=== PATIENT | female | born 1965 | race American Indian/Alaskan Native ===

== ENCOUNTER 2019-02-03 10:55 | Emergency (ER) | payer OTHER ==
[2019-02-03] MEDS ORDERED: TRIMOX PO ONE (12:17)
--- NOTE | 2019-02-03 12:42 | Emergency Department Report ---
ED ENT HPI - General Chief complaint: Sore Throat Stated complaint: SORE THROAT Time Seen by Provider: 02/03/19 11:40 Source: patient Mode of arrival: Ambulatory Limitations: No Limitations - History of Present Illness Initial comments: patient is a 53-year-old female who presents to ED with complaining of throat pain 7 days. Patient describes pain as throbbing in nature, 8 out of 10 intensity, nonradiating, localized to his throat. Admits pain with swallowing and eating. Patient admits no appetite due to throat pain. Patient denies fever/chills/nausea/vomiting/abdominal pain/shortness of breath/chest pain/headache. - Related Data Previous Rx's Medication Instructions Recorded Last Taken Type Amoxicillin [Amoxicillin TAB] 875 mg PO BID #10 tablet 02/03/19 Unknown Rx Nystas/Diphen/Xyl Visc/Mylanta 15 ml PO Q6H PRN #120 ml 02/03/19 Unknown Rx [Magic Mouthwash] Allergies Allergy/AdvReac Type Severity Reaction Status Date / Time neomycin Allergy Swelling Verified 02/03/19 10:56 ED Dental HPI - General Chief complaint: Sore Throat Stated complaint: SORE THROAT Time Seen by Provider: 02/03/19 11:40 Source: patient Mode of arrival: Ambulatory Limitations: No Limitations - Related Data Previous Rx's Medication Instructions Recorded Last Taken Type Amoxicillin [Amoxicillin TAB] 875 mg PO BID #10 tablet 02/03/19 Unknown Rx Nystas/Diphen/Xyl Visc/Mylanta 15 ml PO Q6H PRN #120 ml 02/03/19 Unknown Rx [Magic Mouthwash] Allergies Allergy/AdvReac Type Severity Reaction Status Date / Time neomycin Allergy Swelling Verified 02/03/19 10:56 ED Review of Systems ROS: Stated complaint: SORE THROAT Other details as noted in HPI Comment: All other systems reviewed and negative ED Past Medical Hx - Past Medical History Hx Hypertension: Yes Hx Diabetes: Yes Additional medical history: THRYOID PROBLEMS - Social History Smoking Status: Never Smoker Substance Use Type: None - Medications Home Medications: Home Medications Medication Instructions Recorded Confirmed Last Taken Type Amoxicillin [Amoxicillin TAB] 875 mg PO BID #10 tablet 02/03/19 Unknown Rx Nystas/Diphen/Xyl Visc/Mylanta 15 ml PO Q6H PRN #120 ml 02/03/19 Unknown Rx [Magic Mouthwash] ED Physical Exam - General Limitations: No Limitations General appearance: alert, in no apparent distress - Head Head exam: Present: atraumatic, normocephalic - Eye Eye exam: Present: normal appearance - ENT ENT exam: Present: mucous membranes moist, TM's normal bilaterally - Expanded ENT Exam Expanded Throat exam: Positive: normal inspection, tonsillar erythema. Negative: tonsillar exudate, R peritonsillar mass, L peritonsillar mass - Neck Neck exam: Present: normal inspection, lymphadenopathy ( right anterior lymphadenopathy) - Respiratory Respiratory exam: Present: normal lung sounds bilaterally. Absent: respiratory distress - Cardiovascular Cardiovascular Exam: Present: regular rate, normal rhythm. Absent: systolic murmur, diastolic murmur, rubs, gallop - GI/Abdominal GI/Abdominal exam: Present: soft, normal bowel sounds - Extremities Exam Extremities exam: Present: normal inspection - Back Exam Back exam: Present: normal inspection - Neurological Exam Neurological exam: Present: alert, oriented X3 - Psychiatric Psychiatric exam: Present: normal affect, normal mood - Skin Skin exam: Present: warm, dry, intact, normal color. Absent: rash ED Course Vital Signs 02/03/19 11:10 Temperature 98.9 F Pulse Rate 91 H Respiratory 16 Rate Blood Pressure 142/90 O2 Sat by Pulse 98 Oximetry Critical care attestation.: If time is entered above; I have spent that time in minutes in the direct care of this critically ill patient, excluding procedure time. ED Disposition Clinical Impression: Pharyngitis Disposition: DC-01 TO HOME OR SELFCARE Is pt being admited?: No Does the pt Need Aspirin: No Condition: Stable Instructions: Pharyngitis (ED) Additional Instructions: Make sure to follow up with the primary care physician as discussed. Take all your medications as you've been prescribed. If you have any worsening symptoms or develop new symptoms please return to ED immediately. Prescriptions: Amoxicillin [Amoxicillin TAB] 875 mg PO BID #10 tablet Nystas/Diphen/Xyl Visc/Mylanta [Magic Mouthwash] 15 ml PO Q6H PRN #120 ml PRN Reason: Sore Throat Referrals: [facility] [Outside] - 3-5 Days [facility] [Outside] - 3-5 Days Forms: Work/School Release Form(ED), Accompanied Note Time of Disposition: 12:51
[2019-02-03 13:08] VITALS: BP 140/90
== END 2019-02-03 13:07 | disposition home or self-care (01) ==
LOC: ED 10:55
DX: J02.9 Acute pharyngitis, unspecified (principal); I10 Essential (primary) hypertension; E11.9 Type 2 diabetes mellitus without complications; Z88.1 Allergy status to other antibiotic agents
CPT/HCPCS: 99282

== ENCOUNTER 2019-10-31 09:19 | Emergency (ER) | payer OTHER ==
--- NOTE | 2019-10-31 10:26 | Emergency Department Report ---
ED ENT HPI - General Chief complaint: Earache Stated complaint: EAR PAIN EXTREME Time Seen by Provider: 10/31/19 10:09 Source: patient Mode of arrival: Ambulatory Limitations: No Limitations - History of Present Illness Initial comments: Patient is a 54-year-old female presents emergency room with complaints of bilateral ear pain that began 4 days ago. She states that she had 3 teeth pulled on October 10. She denies any ear drainage, fever. She states it feels like the ear canals are swollen and she has pain even when she tries to remove her earrings. She has a past medical history of DM, HTN, thyroid resection. She has an allergy to neomycin. - Related Data Previous Rx's Medication Instructions Recorded Last Taken Type Amoxicillin [Amoxicillin TAB] 875 mg PO BID #10 tablet 02/03/19 Unknown Rx Nystas/Diphen/Xyl Visc/Mylanta 15 ml PO Q6H PRN #120 ml 02/03/19 Unknown Rx [Magic Mouthwash] Ofloxacin 0.3% [Floxin 0.3% Otic] 10 drop OT DAILY 10 Days #1 bottle 10/31/19 Unknown Rx Allergies Allergy/AdvReac Type Severity Reaction Status Date / Time neomycin Allergy Swelling Verified 10/31/19 09:21 ED Dental HPI - General Chief complaint: Earache Stated complaint: EAR PAIN EXTREME Time Seen by Provider: 10/31/19 10:09 Source: patient Mode of arrival: Ambulatory Limitations: No Limitations - Related Data Previous Rx's Medication Instructions Recorded Last Taken Type Amoxicillin [Amoxicillin TAB] 875 mg PO BID #10 tablet 02/03/19 Unknown Rx Nystas/Diphen/Xyl Visc/Mylanta 15 ml PO Q6H PRN #120 ml 02/03/19 Unknown Rx [Magic Mouthwash] Ofloxacin 0.3% [Floxin 0.3% Otic] 10 drop OT DAILY 10 Days #1 bottle 10/31/19 Unknown Rx Allergies Allergy/AdvReac Type Severity Reaction Status Date / Time neomycin Allergy Swelling Verified 10/31/19 09:21 ED Review of Systems ROS: Stated complaint: EAR PAIN EXTREME Other details as noted in HPI Comment: All other systems reviewed and negative ED Past Medical Hx - Past Medical History Hx Hypertension: Yes Hx Diabetes: Yes Additional medical history: THRYOID PROBLEMS - Surgical History Additional Surgical History: DENTAL SURGERY - Social History Smoking Status: Current Every Day Smoker Substance Use Type: Alcohol - Medications Home Medications: Home Medications Medication Instructions Recorded Confirmed Last Taken Type Amoxicillin [Amoxicillin TAB] 875 mg PO BID #10 tablet 02/03/19 Unknown Rx Nystas/Diphen/Xyl Visc/Mylanta 15 ml PO Q6H PRN #120 ml 02/03/19 Unknown Rx [Magic Mouthwash] Ofloxacin 0.3% [Floxin 0.3% Otic] 10 drop OT DAILY 10 Days #1 bottle 10/31/19 Unknown Rx ED Physical Exam - General Limitations: No Limitations General appearance: alert, in no apparent distress - Head Head exam: Present: atraumatic, normocephalic - Eye Eye exam: Present: normal appearance - ENT ENT exam: Present: normal orophraynx, mucous membranes moist, other (erythema and scaling present to the bilateral canals, bilateral TMs are normal, no TM perforation, no ttp to the bilateral mastoid process) - Respiratory Respiratory exam: Present: normal lung sounds bilaterally. Absent: respiratory distress, wheezes, rales, rhonchi, stridor, chest wall tenderness, accessory muscle use, decreased breath sounds, prolonged expiratory - Cardiovascular Cardiovascular Exam: Present: regular rate, normal rhythm, normal heart sounds. Absent: systolic murmur, diastolic murmur, rubs, gallop - Neurological Exam Neurological exam: Present: alert, oriented X3 - Psychiatric Psychiatric exam: Present: normal affect, normal mood - Skin Skin exam: Present: warm, dry, intact ED Course Vital Signs 10/31/19 10/31/19 09:23 10:50 Temperature 97.8 F Pulse Rate 80 76 Respiratory 18 18 Rate Blood Pressure 176/99 Blood Pressure 168/92 [Left] O2 Sat by Pulse 97 98 Oximetry ED Medical Decision Making - Medical Decision Making Patient is a 54-year-old female presents emergency room with complaints of bilateral ear pain that began 4 days ago. She states that she had 3 teeth pulled on October 10. She denies any ear drainage, fever. She states it feels like the ear canals are swollen and she has pain even when she tries to remove her earrings. She has a past medical history of DM, HTN, thyroid resection. She has an allergy to neomycin. vitals with stable chronic HTN. on exam: erythema and scaling present to the bilateral canals, bilateral TMs are normal, no TM perforation, no ttp to the bilateral mastoid process. Examination consistent with otitis externa at this time. no signs of dental abscess. Patient given prescription for ofloxacin otic drops. advised pt to please use medication as prescribed. May take Tylenol or ibuprofen as needed for pain. Follow-up with your primary care doctor in the next 3 to 5 days to have your ears rechecked. Please keep a blood pressure log and take your blood pressure 3 times a day. Take this log to your primary care physician. Eat a low-sodium diet. Incorporate daily exercise. Return to the emergency room for any new or worsening symptoms. - Differential Diagnosis otitis externa, otitis media, mastoiditis, sialoadenitis, dental abscess Critical care attestation.: If time is entered above; I have spent that time in minutes in the direct care of this critically ill patient, excluding procedure time. ED Disposition Clinical Impression: Otitis externa Qualifiers: Otitis externa type: unspecified type Chronicity: acute Laterality: bilateral Qualified Code(s): H60.503 - Unspecified acute noninfective otitis externa, bilateral Disposition: TO HOME OR SELFCARE Is pt being admited?: No Does the pt Need Aspirin: No Condition: Stable Instructions: Otitis Externa (ED) Additional Instructions: Please use medication as prescribed. May take Tylenol or ibuprofen as needed for pain. Follow-up with your primary care doctor in the next 3 to 5 days to have your ears rechecked. Please keep a blood pressure log and take your blood pressure 3 times a day. Take this log to your primary care physician. Eat a low-sodium diet. Incorporate daily exercise. Return to the emergency room for any new or worsening symptoms. Prescriptions: Ofloxacin 0.3% [Floxin 0.3% Otic] 10 drop OT DAILY 10 Days #1 bottle Referrals: BRYSON QUINTANILLA MD [Staff Physician] - 2-3 Days [facility] [Outside] - 2-3 Days [facility] [Outside] - 2-3 Days Time of Disposition: 10:25 Print Language: BRUNEIAN
[2019-10-31 10:52] VITALS: BP 168/92
== END 2019-10-31 10:50 | disposition home or self-care (01) ==
LOC: ED 09:19
DX: H60.93 Unspecified otitis externa, bilateral (principal); I10 Essential (primary) hypertension; E11.9 Type 2 diabetes mellitus without complications; F17.200 Nicotine dependence, unspecified, uncomplicated; Z98.890 Other specified postprocedural states; Z79.2 Long term (current) use of antibiotics; Z79.899 Other long term (current) drug therapy; Z88.8 Allergy status to other drugs, medicaments and biological substances
CPT/HCPCS: 99282

== ENCOUNTER 2020-06-20 08:14 | Inpatient (IN) | payer OTHER ==
[2020-06-20] MEDS ORDERED: ONDANSETRON 4 MG/2 ML INJ IV ONE ×2 (08:43→09:57)
[2020-06-20] MEDS ORDERED: MORPHINE 4 MG/1 ML INJ IV ONE ×2 (08:43→09:57)
--- NOTE | 2020-06-20 08:46 | Emergency Department Report ---
HPI - General Chief Complaint: Abdominal Pain Time Seen by Provider: 06/20/20 08:31 - HPI HPI: This is a 54-year-old -[place] female who presents to the emergency department from home, driven in by her brother, with a complaint of abdominal pain and vomiting that has been going on since this morning, around 3-4 AM. She denies any fever, diarrhea, back pain, dysuria, vaginal bleeding or discharge. She has not taken anything for symptoms prior to presentation. The patient says "I think I got food poisoning." She ate some [place] food that she has had previously. She has a past medical history of hypertension and diabetes. She does present with some elevated blood pressure but has not been able to take her medications yet this morning due to her current symptoms. No recent travel or sick contacts at home. No known exposure to anyone with Covid 19. Her abdominal pain appears to improve when laying on her left side. The abdominal pain is mostly in the upper abdomen. ED Past Medical Hx - Past Medical History Previous Medical History?: Yes Hx Hypertension: Yes Hx Diabetes: Yes Additional medical history: THRYOID PROBLEMS - Surgical History Past Surgical History?: Yes Additional Surgical History: DENTAL SURGERY - Social History Smoking Status: Current Every Day Smoker Substance Use Type: Alcohol - Medications Home Medications: Home Medications Medication Instructions Recorded Confirmed Last Taken Type Levothyroxine 200 mg PO DAILY 06/20/20 06/20/20 Unknown History Lisinopril [Zestril] 5 mg PO Q48HR 06/20/20 06/20/20 Unknown History ED Review of Systems ROS: Stated complaint: FOOD POISION Other details as noted in HPI Comment: All other systems reviewed and negative Constitutional: denies: chills, fever Eyes: denies: eye pain, vision change ENT: denies: ear pain, throat pain Respiratory: denies: cough, shortness of breath Cardiovascular: denies: chest pain, palpitations Gastrointestinal: abdominal pain, vomiting. denies: diarrhea Genitourinary: denies: dysuria, discharge Musculoskeletal: denies: back pain, arthralgia Skin: denies: rash, lesions Neurological: denies: headache, weakness Physical Exam - Physical Exam Vital Signs: Vital Signs 06/20/20 06/20/20 06/20/20 08:18 08:35 08:39 Temperature 98.5 F Pulse Rate 80 83 Respiratory 18 18 18 Rate Blood Pressure 191/105 O2 Sat by Pulse 98 99 Oximetry Physical Exam: GENERAL: The patient is well-developed well-nourished. HENT: Normocephalic. Atraumatic. Patient has moist mucous membranes. EYES: Extraocular motions are intact. NECK: Supple. Trachea is midline. CHEST/LUNGS: Clear to auscultation. There is no respiratory distress noted. HEART/CARDIOVASCULAR: Regular. There is no tachycardia. There is no murmur. ABDOMEN: Abdomen is soft. Epigastric and left/right upper quadrant abdominal tenderness to palpation patient has normal bowel sounds. No guarding. SKIN: Skin is warm and dry. NEURO: The patient is awake, alert, and oriented. The patient is cooperative. Normal speech. MUSCULOSKELETAL: There is no tenderness or deformity. There is no limitation range of motion. ED Course Vital Signs 06/20/20 06/20/20 06/20/20 08:18 08:35 08:39 Temperature 98.5 F Pulse Rate 80 83 Respiratory 18 18 18 Rate Blood Pressure 191/105 O2 Sat by Pulse 98 99 Oximetry - Consultations Consultation #1: 06/20/20 12:07 I spoke with the general surgeon on-call, Dr. Chambers, regarding the patient's physical examination and ultrasound finding of a distended gallbladder without evidence of cholelithiasis or cholecystitis. He has asked for the patient to be admitted to the hospitalist service, for a HIDA scan to be ordered, and he will follow-up with the patient as a consult. ED Medical Decision Making - Lab Data Result diagrams: 06/20/20 08:31 06/20/20 09:11 - Radiology Data Radiology results: report reviewed, image reviewed interpreted by me: Abdominal x-ray shows nonspecific nonobstructive bowel gas. ULTRASOUND ABDOMEN, LIMITED (RIGHT UPPER QUADRANT) INDICATION / CLINICAL INFORMATION: Upper abd pain. COMPARISON: None available. FINDINGS: PANCREAS: Not well visualized secondary to overlying bowel gas. LIVER: The liver measures 14.4 cm in length and demonstrates diffusely increased parenchymal echogenicity. GALLBLADDER: The gallbladder is significantly distended without evidence of stones or wall thickening. There is a positive sonographic Prado's sign. BILE DUCTS: No significant abnormality. Common bile duct measures 4 mm. FREE FLUID: None. ADDITIONAL FINDINGS: None. IMPRESSION: 1. Significant gallbladder distention without cholelithiasis or cholecystitis. There was a positive son ographic Prado's sign. Further evaluation with nuclear medicine hepatobiliary (HIDA) scan may be helpful. 2. Hepatic steatosis. - Medical Decision Making This patient presents to the emergency department with a complaint of upper abdominal pain, nausea and vomiting that started this morning around 3 AM. On examination the patient is quite tender to palpation to the right upper quadrant and epigastrium with a positive Prado sign. Patient's labs have been mostly unremarkable including CBC, CMP and urinalysis, other than some hyperglycemia and mild dehydration with 20 ketones in the urine. The blood sugar is initially about 320 but there is no significant elevated anion gap and this does not appear consistent with diabetic ketoacidosis. Abdominal x-ray shows nonspecific nonobstructive bowel gas. Abdominal ultrasound shows a distended gallbladder without definitive evidence for cholelithiasis or cholecystitis. The radiology reading recommends a HIDA scan for concern for possible choledocholithiasis. General surgery was contacted and consulted. HIDA scan has been ordered. The patient will be admitted to the hospitalist service with a general surgery consult. Critical Care Time: No Critical care attestation.: If time is entered above; I have spent that time in minutes in the direct care of this critically ill patient, excluding procedure time. ED Disposition Clinical Impression: Intractable abdominal pain, Abnormal ultrasound of abdomen Nausea & vomiting Qualifiers: Vomiting type: unspecified Vomiting Intractability: intractable Qualified Code(s): R11.2 - Nausea with vomiting, unspecified Hypertension Qualifiers: Hypertension type: essential hypertension Qualified Code(s): I10 - Essential (primary) hypertension Disposition: OP ADMIT IP TO THIS HOSP Is pt being admited?: Yes Condition: Fair Time of Disposition: 12:26
[2020-06-20 08:55] LABS: Basophils # (Auto) 0.1 K/mm3 (0.0-0.1); Basophils % (Auto) 1.4 % (0.0-1.8); Eosinophils # (Auto) 0.1 K/mm3 (0.0-0.4); Hematocrit 44.5 % (30.3-42.9); Hemoglobin 15.2 gm/dl (10.1-14.3); Lymphocytes # (Auto) 1.7 K/mm3 (1.2-5.4); Lymphocytes % (Auto) 18.4 % (13.4-35.0); Mean Corpuscular HGB Conc 34 % (30-34); Mean Corpuscular Volume 90 fl (79-97); Monocytes # (Auto) 0.3 K/mm3 (0.0-0.8); Monocytes % (Auto) 3.8 % (0.0-7.3); Platelet Count 272 K/mm3 (140-440); Red Blood Count 4.93 M/mm3 (3.65-5.03); Red Cell Distribution Width 16.1 % (13.2-15.2)
[2020-06-20 09:01] LABS: Bacteria,Urine 1+ /HPF (Negative); Bilirubin,Urine NEG (Negative); Blood,Urine NEG (Negative); Color,Urine Straw (Yellow); Urobilinogen,Urine < 2.0 mg/dL (<2.0)
--- NOTE | 2020-06-20 09:16 | XRay Report ---
ABDOMEN 4 VIEWS INDICATION / CLINICAL INFORMATION: Abd pain. COMPARISON: None available. FINDINGS: TUBES / LINES: None. BOWEL GAS PATTERN: No significant abnormality. FREE AIR / EXTRALUMINAL GAS: None seen. ADDITIONAL FINDINGS: Small right-sided calcified pelvic mass likely reflects a fibroid. CHEST: Visualized chest shows no significant abnormality. IMPRESSION: 1. No significant abnormality. Signer Name: Sergio Montez MD Signed: 06/20/2020 9:11 AM Workstation Name: [id number]
[2020-06-20 09:50] LABS: Alanine Aminotransferase 34 units/L (7-56); Albumin 4.6 g/dL (3.9-5); BUN/Creatinine Ratio 14; Blood Urea Nitrogen 11 mg/dL (7-17); Calcium 9.5 mg/dL (8.4-10.2); Hemolysis Index 15
[2020-06-20] MEDS ORDERED: SODIUM CHLORIDE 0.9% 500 ML 500 ML IV ONE (09:55)
[2020-06-20] MEDS ORDERED: INSULIN REGULAR, HUMAN 100 UNIT/ML 3ML VIAL IV SCH (10:00)
--- NOTE | 2020-06-20 11:46 | Ultrasound Report ---
ULTRASOUND ABDOMEN, LIMITED (RIGHT UPPER QUADRANT) INDICATION / CLINICAL INFORMATION: Upper abd pain. COMPARISON: None available. FINDINGS: PANCREAS: Not well visualized secondary to overlying bowel gas. LIVER: The liver measures 14.4 cm in length and demonstrates diffusely increased parenchymal echogen[place] city. GALLBLADDER: The gallbladder is significantly distended without evidence of stones or wall thickening . There is a positive sonographic Prado's sign. BILE DUCTS: No significant abnormality. Common bile duct measures 4 mm. FREE FLUID: None. ADDITIONAL FINDINGS: None. IMPRESSION: 1. Significant gallbladder distention without cholelithiasis or cholecystitis. There was a positive s onographic Prado's sign. Further evaluation with nuclear medicine hepatobiliary (HIDA) scan may be h elpful. 2. Hepatic steatosis. Signer Name: Sergio Montez MD Signed: 06/20/2020 11:41 AM Workstation Name: [id number]
--- NOTE | 2020-06-20 13:25 | Progress Note ---
Assessment and Plan consult rec'd Await HIDA scan results but dx suspicious for acute cholecystitis based on +Prado's sign/symptom complex. will see pt tomorrow Subjective Date of service: 06/20/20 Objective Vital Signs - 12hr 06/20/20 06/20/20 06/20/20 08:18 08:35 08:39 Temperature 98.5 F Pulse Rate 80 83 Respiratory 18 18 18 Rate Blood Pressure 191/105 O2 Sat by Pulse 98 99 Oximetry 06/20/20 06/20/20 06/20/20 08:45 09:01 09:05 Temperature Pulse Rate 88 80 Respiratory 18 18 13 Rate Blood Pressure 184/97 165/78 O2 Sat by Pulse 100 94 Oximetry 06/20/20 06/20/20 06/20/20 09:09 09:15 09:31 Temperature Pulse Rate 77 81 Respiratory 18 14 18 Rate Blood Pressure 165/78 165/78 O2 Sat by Pulse 97 90 Oximetry 06/20/20 06/20/20 06/20/20 09:45 10:00 10:21 Temperature Pulse Rate 80 81 76 Respiratory 17 14 13 Rate Blood Pressure 165/78 184/94 184/94 O2 Sat by Pulse 93 98 100 Oximetry 06/20/20 06/20/20 06/20/20 10:55 10:58 11:01 Temperature Pulse Rate Respiratory 18 Rate Blood Pressure 184/94 184/94 O2 Sat by Pulse 100 99 Oximetry 06/20/20 06/20/20 06/20/20 11:04 11:15 11:31 Temperature Pulse Rate Respiratory 18 Rate Blood Pressure 184/94 184/94 O2 Sat by Pulse 88 94 Oximetry 06/20/20 06/20/20 06/20/20 11:45 12:01 12:15 Temperature Pulse Rate Respiratory Rate Blood Pressure 184/94 165/88 165/88 O2 Sat by Pulse 93 93 93 Oximetry - Labs 06/20/20 08:31 06/20/20 09:11 Diabetes panel 06/20/20 Range/Units 09:11 Sodium 136 L (137-145) mmol/L Potassium 3.9 (3.6-5.0) mmol/L Chloride 96.2 L (98-107) mmol/L Carbon Dioxide 25 (22-30) mmol/L BUN 11 (7-17) mg/dL Creatinine 0.8 (0.6-1.2) mg/dL Glucose 365 H (65-100) mg/dL Calcium 9.5 (8.4-10.2) mg/dL AST 25 (5-40) units/L ALT 34 (7-56) units/L Alkaline Phosphatase 146 H (35-129) units/L Total Protein 7.8 (6.3-8.2) g/dL Albumin 4.6 (3.9-5) g/dL Calcium panel 06/20/20 Range/Units 09:11 Calcium 9.5 (8.4-10.2) mg/dL Albumin 4.6 (3.9-5) g/dL Pituitary panel 06/20/20 Range/Units 09:11 Sodium 136 L (137-145) mmol/L Potassium 3.9 (3.6-5.0) mmol/L Chloride 96.2 L (98-107) mmol/L Carbon Dioxide 25 (22-30) mmol/L BUN 11 (7-17) mg/dL Creatinine 0.8 (0.6-1.2) mg/dL Glucose 365 H (65-100) mg/dL Calcium 9.5 (8.4-10.2) mg/dL Adrenal panel 06/20/20 Range/Units 09:11 Sodium 136 L (137-145) mmol/L Potassium 3.9 (3.6-5.0) mmol/L Chloride 96.2 L (98-107) mmol/L Carbon Dioxide 25 (22-30) mmol/L BUN 11 (7-17) mg/dL Creatinine 0.8 (0.6-1.2) mg/dL Glucose 365 H (65-100) mg/dL Calcium 9.5 (8.4-10.2) mg/dL Total Bilirubin 0.50 (0.1-1.2) mg/dL AST 25 (5-40) units/L ALT 34 (7-56) units/L Alkaline Phosphatase 146 H (35-129) units/L Total Protein 7.8 (6.3-8.2) g/dL Albumin 4.6 (3.9-5) g/dL
--- NOTE | 2020-06-20 13:39 | History and Physical Report ---
History of Present Illness Date of examination: 06/20/20 Date of admission: 06/20/20 12:56 Chief complaint: Nausea vomiting and abdominal pain of 1 day duration History of present illness: 54-year-old morbidly obese -[place] female patient with significant past medical history of type 2 diabetes mellitus hypothyroidism and hypertension ongoing tobacco use presented to the emergency room with nausea vomiting abdominal pain last night, patient denies any diarrhea, no fever Patient feels that she has food poisoning as she had some still [place] food. Denies hematemesis, melena or rectal bleeding No history of sick contacts, no one in the family has similar symptoms, no exposure to COVID-19 patient's Initial work-up in the emergency room with abdominal ultrasound;Significant gallbladder distention without cholelithiasis or cholecystitis. There was a positive sonographic Prado's sign. Further evaluation with nuclear medicine hepatobiliary (HIDA) scan may be helpful. Past History Past Medical History: diabetes, hypertension, hypothyroidism Past Surgical History: Other (Dental surgery) Social history: smoking, alcohol abuse. denies: prescription drug abuse Family history: hypertension Medications and Allergies Allergies Allergy/AdvReac Type Severity Reaction Status Date / Time neomycin Allergy Swelling Verified 10/31/19 09:21 Home Medications Medication Instructions Recorded Confirmed Last Taken Type Levothyroxine 200 mg PO DAILY 06/20/20 06/20/20 Unknown History Lisinopril [Zestril] 5 mg PO Q48HR 06/20/20 06/20/20 Unknown History Active Meds: Active Medications Insulin Human Regular (Humulin R) 3 unit IV ONCE REVA Last Admin: 06/20/20 11:00 Dose: 3 unit Documented by: Review of Systems Constitutional: weakness, no weight loss, no fever, no chills Ears, nose, mouth and throat: no nasal congestion, no nasal discharge Cardiovascular: no chest pain, no orthopnea, no palpitations Respiratory: no cough, no hemoptysis Gastrointestinal: abdominal pain, nausea, vomiting, no diarrhea, no hematemesis, no melena Genitourinary Female: no pelvic pain, no flank pain Musculoskeletal: no myalgias, no arthritis Integumentary: no rash, no lesions Neurological: no weakness, no numbness, no tingling Psychiatric: no anxiety, no insomnia, no depression Endocrine: no cold intolerance, no heat intolerance Hematologic/Lymphatic: no easy bruising, no easy bleeding Allergic/Immunologic: no urticaria, no allergic rhinitis Exam - Constitutional Vitals: Temp Pulse Resp BP Pulse Ox 98.5 F 76 18 165/88 93 06/20/20 08:18 06/20/20 10:21 06/20/20 11:04 06/20/20 12:15 06/20/20 12:15 General appearance: Present: no acute distress, well-nourished, obese (Morbidly obese) - EENT Eyes: Present: PERRL, EOM intact - Neck Neck: Present: supple, normal ROM - Respiratory Respiratory effort: normal Respiratory: bilateral: diminished, negative: rales, rhonchi, wheezing - Cardiovascular Rhythm: regular Heart Sounds: Present: S1 & S2 - Extremities Extremities: no ischemia, No edema - Abdominal General gastrointestinal: Present: soft, non-tender, non-distended, normal bowel sounds - Integumentary Integumentary: Present: clear, warm - Musculoskeletal Musculoskeletal: strength equal bilaterally - Psychiatric Psychiatric: appropriate mood/affect, cooperative - Neurologic Neurologic: CNII-XII intact, moves all extremities Results - Labs CBC & Chem 7: 06/20/20 08:31 06/20/20 09:11 Labs: Abnormal lab results 06/20/20 06/20/20 06/20/20 Range/Units 08:31 08:38 09:11 Hgb 15.2 H (10.1-14.3) gm/dl Hct 44.5 H (30.3-42.9) % RDW 16.1 H (13.2-15.2) % Seg Neutrophils % 75.4 H (40.0-70.0) % Sodium 136 L (137-145) mmol/L Chloride 96.2 L (98-107) mmol/L Glucose 365 H (65-100) mg/dL POC Glucose 322 H (70-105) Alkaline Phosphatase 146 H (35-129) units/L 06/20/20 06/20/20 Range/Units 11:34 12:08 Hgb (10.1-14.3) gm/dl Hct (30.3-42.9) % RDW (13.2-15.2) % Seg Neutrophils % (40.0-70.0) % Sodium (137-145) mmol/L Chloride (98-107) mmol/L Glucose (65-100) mg/dL POC Glucose 295 H 264 H (70-105) Alkaline Phosphatase (35-129) units/L Assessment and Plan --Abdominal pain; Possible acute cholecystitis, gallbladder disease Check HIDA scan, pain medications Empiric IV antibiotics, IV fluids, IV Protonix and supportive care Surgery consulted --Possible acute cholecystitis; Antibiotics, IV fluids, n.p.o. status Follow HIDA scan, surgery consulted --Type 2 diabetes mellitus; Uncontrolled Accu-Chek sliding scale coverage ADA diet insulin as needed --Hypertension; moderate control Antihypertensives, PRN labetalol --Hypothyroidism; --Morbid obesity; BMI 38.8 Patient needs diet modification exercise as tolerated and weight reduction when medically stable --Ongoing tobacco use; Smoking cessation counseling, Advised nicotine patch as needed Closely monitor the patient and adjust management as needed Plan of care reviewed with the patient and her nurse Follow surgery evaluation recommendations Follow HIDA scan and reports
[2020-06-20] MEDS: SODIUM CHLORIDE 0.9% 1000 ML 1,000 ML IV SCH (18:13)
[2020-06-20] MEDS: PIPERACIL/TAZOBACTA 4.5/NS 100 4.5 GM/100 ML VIAL IV SCH ×2 (18:14→21:05)
[2020-06-20] MEDS: INSULIN LISPRO 100 UNIT/ML VIAL 3 mL SUB-Q SCH ×2 (18:15→21:05)
[2020-06-20] MEDS: MORPHINE 2 MG/1 ML INJ IV PRN (21:06)
[2020-06-21] MEDS: SODIUM CHLORIDE 0.9% 1000 ML 1,000 ML IV SCH ×2 (05:26→08:40)
[2020-06-21] MEDS: PIPERACIL/TAZOBACTA 4.5/NS 100 4.5 GM/100 ML VIAL IV SCH ×2 (05:26→13:34)
[2020-06-21] MEDS: LEVOTHYROXINE 100 MCG TAB PO SCH (05:27)
[2020-06-21] MEDS: MORPHINE 2 MG/1 ML INJ IV PRN (05:43)
[2020-06-21] MEDS: INSULIN LISPRO 100 UNIT/ML VIAL 3 mL SUB-Q SCH ×4 (09:21→23:23)
--- NOTE | 2020-06-21 12:36 | Consultation ---
History of Present Illness Consult date: 06/21/20 Reason for consult: abdominal pain - History of present illness History of present illness: 54 yo obese WF with one day of abd pain (epig/RUQ) assoc with n/v. U/s with thickened wall c/w cholecystitis but no stones or fluid seen. Labs WNL, incl WBC, LFTs, lipase Pt denies hx abd complaints. No hx anes/bleeding complications Past History Past Medical History: diabetes, hypertension, hypothyroidism Past Surgical History: Other (Dental surgery) Social history: smoking, alcohol abuse. denies: prescription drug abuse Family history: hypertension Medications and Allergies Allergies Allergy/AdvReac Type Severity Reaction Status Date / Time neomycin Allergy Swelling Verified 10/31/19 09:21 Home Medications Medication Instructions Recorded Confirmed Last Taken Type Levothyroxine 200 mg PO DAILY 06/20/20 06/20/20 Unknown History Lisinopril [Zestril] 5 mg PO Q48HR 06/20/20 06/20/20 Unknown History Active Meds: Active Medications Sodium Chloride (Nacl 0.9% 1000 Ml) 1,000 mls @ 100 mls/hr IV DIRECT REVA Last Admin: 06/21/20 08:40 Dose: 100 mls/hr Documented by: Piperacillin Sod/Tazobactam Sod (Zosyn/Ns 4.5gm/100ml) 4.5 gm in 100 mls @ 200 mls/hr IV Q8HR [facility]; Protocol Last Admin: 06/21/20 05:26 Dose: 200 mls/hr Documented by: Insulin Human Lispro (Humalog) 0 unit SUB-Q ACHS REVA; Protocol Last Admin: 06/21/20 09:21 Dose: Not Given Documented by: Levothyroxine Sodium (Synthroid) 200 mcg PO DAILY@0600 [facility] Last Admin: 06/21/20 05:27 Dose: 200 mcg Documented by: Morphine Sulfate (Morphine) 2 mg IV Q4H PRN PRN Reason: Pain, Moderate (4-6) Last Admin: 06/21/20 05:43 Dose: 2 mg Documented by: Pantoprazole Sodium (Protonix) 40 mg IV QDAY REVA Exam Vital Signs Temp Pulse Resp BP Pulse Ox 98.5 F 80 18 191/105 98 06/20/20 08:18 06/20/20 08:18 06/20/20 08:18 06/20/20 08:18 06/20/20 08:18 pt looks uncomfortable - Abdomen Abdomen: Present: soft, tender, bowel sounds normal, guarding (+sig TTp epig/RUQ; +muprhy's sign; grossly obese; no uppr abd scars; upper abd bulge from peig to supraumb region-- unable to palpate hernia defect- likely diastasis) Results - Labs 06/20/20 08:31 06/20/20 09:11 Abnormal lab results 06/20/20 06/20/20 06/21/20 Range/Units 16:20 21:13 07:54 POC Glucose 228 H 185 H 256 H (70-105) Assessment and Plan Abdominal pain/nausea/vomiting--- acute cholecystitis is likely dx, but will verify with HIDA scan since no stones seen on u/s. Abdominal bulging (upper abd)-- check CT to ensure no hernia or other pathology noted as this could affect operative plan. Morbid obesity/DM/etc-- will inc complication/infection rates
--- NOTE | 2020-06-21 12:38 | Cat Scan Report ---
CT abdomen pelvis w con INDICATION: Right upper quadrant pain. COMPARISON: Ultrasound from 06/20/2020 TECHNIQUE: Abdominal and pelvic CT exam performed. All CT scans at this location are performed using CT dose reduction for ALARA by means of automated exposure control. FINDINGS: CT ABDOMEN and PELVIS: Lung Bases: No significant abnormality. Liver: No significant abnormality. Biliary: Dilated gallbladder with significant gallbladder wall thickening. No definite gallstones gayle ntified. Spleen: No significant abnormality. Pancreas: No significant abnormality. Adrenals: No significant abnormality. Kidneys: No significant abnormality. Lymphatics: No lymphadenopathy. Vasculature: No significant abnormality. Bowel/Peritoneum: Diverticulosis without colonic wall thickening or pericolonic stranding. Normal braulio endix. Pelvis: Uterus is enlarged with numerous underlying fibroids. Osseous Structures: No aggressive osseous lesion. Additional Findings: None IMPRESSION: 1. Dilated gallbladder with gallbladder wall thickening concerning for cholecystitis. Signer Name: Abel Trevino MD Signed: 06/21/2020 12:33 PM Workstation Name: [id number]
--- NOTE | 2020-06-21 12:56 | Nuclear Medicine Report ---
NUCLEAR MEDICINE HEPATOBILIARY SCAN INDICATION / CLINICAL INFORMATION: Abd pain, concern for chodecholithiasis. TECHNIQUE: Radiotracer: Tc-99m mebrofenin (by IV): 5 mCi. Gallbladder Stimulant: None given COMPARISON: None available. FINDINGS: HEPATIC ACTIVITY: Normal. BILIARY ACTIVITY: Common bile duct is normal.. GALLBLADDER ACTIVITY: Does not fill. SMALL BOWEL ACTIVITY: Normal IMPRESSION: 1. Biliary obstruction: Gallbladder does not fill with radiotracer consistent with cystic duct obstru ction.. Signer Name: Abel Trevino MD Signed: 06/21/2020 12:51 PM Workstation Name: [id number]
--- NOTE | 2020-06-21 13:19 | Progress Note ---
Assessment and Plan Assessment and plan: HIDA scan; cystic duct obstruction CT abdomen and pelvis; dilated gallbladder with gallbladder wall thickening Concerning for acute cholecystitis --Abdominal pain; Possible acute cholecystitis, gallbladder disease HIDA scan; cystic duct obstruction Empiric IV antibiotics, IV fluids, IV Protonix and supportive care N.p.o., possible cholecystectomy Surgery following --Possible cholecystitis: on CT abdomen Antibiotics, IV fluids, n.p.o. status Surgery following --Type 2 diabetes mellitus; Accu-Chek sliding scale coverage ADA diet insulin as needed --Hypertension; moderate control Antihypertensives, PRN labetalol --Hypothyroidism; --Morbid obesity; BMI 38.8 Patient needs diet modification exercise as tolerated and weight reduction when medically stable --Ongoing tobacco use; Smoking cessation counseling, Advised nicotine patch as needed We will follow surgery evaluation and recommendations Continue current management Plan of care reviewed with the patient and her nurse History Interval history: I have seen and examined the patient at the bedside this morning patient's chart and medications reviewed Patient had HIDA scan done today Revealed cystic duct obstruction And still has intermittent abdominal pain No nausea vomiting Vital signs reviewed Hospitalist Physical - Constitutional Vitals: Temp Pulse Resp BP Pulse Ox 98.7 F 98 H 16 164/101 95 06/21/20 12:52 06/21/20 12:52 06/21/20 12:52 06/21/20 12:52 06/21/20 12:52 General appearance: Present: no acute distress, well-nourished, obese (Morbidly obese) - EENT Eyes: Present: PERRL, EOM intact - Neck Neck: Present: supple, normal ROM - Respiratory Respiratory effort: normal Respiratory: bilateral: diminished, negative: rales, rhonchi, wheezing - Cardiovascular Rhythm: regular Heart Sounds: Present: S1 & S2 - Extremities Extremities: no ischemia, No edema - Abdominal General gastrointestinal: soft, tender (No guarding no rigidity), normal bowel sounds - Integumentary Integumentary: Present: clear, warm - Psychiatric Psychiatric: appropriate mood/affect, cooperative - Neurologic Neurologic: moves all extremities Results - Labs CBC & Chem 7: 06/20/20 08:31 10 09:11 Labs: Laboratory Last Values WBC 9.3 K/mm3 (4.5-11.0) 06/20/20 08:31 RBC 4.93 M/mm3 (3.65-5.03) 06/20/20 08: Hgb 15.2 gm/dl (10.1-14.3) H 06/20/20 08:31 Hct 44.5 % (30.3-42.9) H 06/20/20 08:31 MCV 90 fl (79-97) 06/20/20 08: MCH 31 pg (28-32) 06/20/20 08: MCHC 34 % (30-34) 06/20/20 08: RDW 16.1 % (13.2-15.2) H 06/20/20 08:31 Plt Count 272 K/mm3 (140-440) 06/20/20 08: Lymph % (Auto) 18.4 % (13.4-35.0) 06/20/20 08:31 [place] % (Auto) 3.8 % (0.0-7.3) 06/20/20 08: Eos % (Auto) 1.0 % (0.0-4.3) 06/20/20 08: Baso % (Auto) 1.4 % (0.0-1.8) 06/20/20 08:31 Lymph # (Auto) 1.7 K/mm3 (1.2-5.4) 06/20/20 08: [place] # (Auto) 0.3 K/mm3 (0.0-0.8) 06/20/20 08: Eos # (Auto) 0.1 K/mm3 (0.0-0.4) 06/20/20 08: Baso # (Auto) 0.1 K/mm3 (0.0-0.1) 06/20/20 08:31 Seg Neutrophils % 75.4 % (40.0-70.0) H 06/20/20 08: Seg Neutrophils # 7.0 K/mm3 (1.8-7.7) 06/20/20 08:31 Sodium 136 mmol/L (137-145) L 06/20/20 09:11 Potassium 3.9 mmol/L (3.6-5.0) 06/20/20 09:11 Chloride 96.2 mmol/L (98-107) L 06/20/20 09:11 Carbon Dioxide 25 mmol/L (22-30) 06/20/20 09:11 Anion Gap 19 mmol/L 06/20/20 09:11 BUN 11 mg/dL (7-17) 06/20/20 09:11 Creatinine 0.8 mg/dL (0.6-1.2) 06/20/20 09:11 Estimated GFR > 60 ml/min 06/20/20 09:11 BUN/Creatinine Ratio 14 % 06/20/20 09:11 Glucose 365 mg/dL (65-100) H 06/20/20 09:11 POC Glucose 256 (70-105) H 06/21/20 07:54 Calcium 9.5 mg/dL (8.4-10.2) 06/20/20 09:11 Total Bilirubin 0.50 mg/dL (0.1-1.2) 06/20/20 09:11 AST 25 units/L (5-40) 06/20/20 09:11 ALT 34 units/L (7-56) 06/20/20 09:11 Alkaline Phosphatase 146 units/L (35-129) H 06/20/20 09:11 Total Protein 7.8 g/dL (6.3-8.2) 06/20/20 09:11 Albumin 4.6 g/dL (3.9-5) 06/20/20 09:11 Albumin/Globulin Ratio 1.4 % 06/20/20 09:11 Lipase 45 units/L (13-60) 06/20/20 09:11 Urine Color Straw (Yellow) 06/20/20 08:39 Urine Turbidity Clear (Clear) 06/20/20 08:39 Urine pH 7.0 (5.0-7.0) 06/20/20 08:39 Ur Specific [place] 1.018 (1.003-1.030) 06/20/20 08:39 Urine Protein 100 mg/dl mg/dL (Negative) 06/20/20 08:39 Urine Glucose (UA) >=500 mg/dL (Negative) 06/20/20 08:39 Urine Ketones 20 mg/dL (Negative) 06/20/20 08:39 Urine Blood Neg (Negative) 06/20/20 08:39 Urine Nitrite Neg (Negative) 06/20/20 08:39 Urine Bilirubin Neg (Negative) 06/20/20 08:39 Urine Urobilinogen < 2.0 mg/dL (<2.0) 06/20/20 08:39 Ur Leukocyte Esterase Neg (Negative) 06/20/20 08:39 Urine WBC (Auto) 4.0 /HPF (0.0-6.0) 06/20/20 08:39 Urine RBC (Auto) 2.0 /HPF (0.0-6.0) 06/20/20 08:39 U Epithel Cells (Auto) 2.0 /HPF (0-13.0) 06/20/20 08:39 Urine Bacteria (Auto) 1+ /HPF (Negative) 06/20/20 08:39 Meredith/IV: Voiding Method Toilet IV Catheter Type [Right INT / Saline Lock Forearm] Active Medications - Current Medications Current Medications: Generic Name Dose Route Start Last Admin Trade Name Freq PRN Reason Stop Dose Admin Sodium Chloride 1,000 mls @ 100 mls/hr 06/20/20 13:45 06/21/20 08:40 Nacl 0.9% 1000 Ml IV 100 mls/hr DIRECT REVA Administration Piperacillin Sod/Tazobactam Sod 4.5 gm in 100 mls @ 200 mls/hr 06/20/20 14:00 06/21/20 05:26 Zosyn/Ns 4.5gm/100ml IV 200 mls/hr Q8HR REVA Administration Protocol Insulin Human Lispro 0 unit 06/20/20 16:30 06/21/20 09:21 Humalog SUB-Q Not Given ACHS [facility] Protocol Levothyroxine Sodium 200 mcg 06/21/20 06:00 06/21/20 05:27 Synthroid PO 200 mcg DAILY@0600 [facility] Administration Morphine Sulfate 2 mg 06/20/20 13:40 06/21/20 05:43 Morphine IV 2 mg Q4H PRN Administration Pain, Moderate (4-6) Pantoprazole Sodium 40 mg 06/21/20 10:00 Protonix IV QDAY [facility]
[2020-06-21] MEDS: PANTOPRAZOLE 40 MG INJ IV SCH (13:34)
--- NOTE | 2020-06-21 14:02 | Progress Note ---
Assessment and Plan acute cholecystitis dx verified by both HIDA and CT. CT also shows small umbilical hernia-- will repair at time of LC. d/w pt Objective Vital Signs - 12hr 06/21/20 06/21/20 06/21/20 03:00 04:51 05:43 Temperature 99.3 F Pulse Rate 101 H Respiratory 18 18 Rate Blood Pressure 117/76 O2 Sat by Pulse 98 92 Oximetry 06/21/20 12:52 Temperature 98.7 F Pulse Rate 98 H Respiratory 16 Rate Blood Pressure 164/101 O2 Sat by Pulse 95 Oximetry - Labs 06/20/20 08:31 06/20/20 09:11
[2020-06-21] MEDS ORDERED: LACTATED RINGERS 1,000 ML ONE (16:14)
[2020-06-21] MEDS: LACTATED RINGERS 1,000 ML IV SCH (16:40)
[2020-06-21] MEDS ORDERED: HYDROmorphone 1 MG/1 ML INJ IV PRN (16:51)
[2020-06-21] MEDS ORDERED: ONDANSETRON 4 MG/2 ML INJ IV PRN (16:51)
--- NOTE | 2020-06-21 16:51 | Anesthesia Consultation ---
Anesthesia Consult and Med Hx Date of service: 06/21/20 - Airway Anesthetic Teeth Evaluation: Poor ROM Head & Neck: Adequate Mental/Hyoid Distance: Adequate Mallampati Class: Class III Intubation Access Assessment: Possibly Difficult - Pulmonary Exam CTA: Yes - Cardiac Exam Cardiac Exam: RRR - Pre-Operative Health Status ASA Pre-Surgery Classification: ASA3 Proposed Anesthetic Plan: General - Pulmonary Hx Smoking: Yes Hx Respiratory Symptoms: No - Cardiovascular System Hx Hypertension: Yes Hx Heart Attack/AMI: No Hx Percutaneous Transluminal Coronary Angioplasty (PTCA): No Hx Cardia Arrhythmia: No - Central Nervous System CVA: No - Endocrine Hx Renal Disease: No Hx Liver Disease: No Hx Insulin Dependent Diabetes: Yes (poorly controlled this admission) Hx Hypothyroidism: Yes - Hematic Hx Anemia: No - Other Systems Hx Obesity: Yes (BMI 36) - Additional Comments Anesthesia Medical History Comments: No hx anesthetic complications. No recent N/V.
--- NOTE | 2020-06-21 16:51 | Anesthesia Day of Surgery ---
Anesthesia Day of Surgery - Day of Surgery Patient Examined: Yes Patient H&P Reviewed: Yes Patient is NPO: Yes
[2020-06-21] MEDS ORDERED: BUPIVACAINE/PF (0.25%) 2.5 MG/ML 30 ML VIAL INFILTRATI ONE (16:55)
[2020-06-21] MEDS ORDERED: LIDOCAINE (1%) 10 MG/1 ML VIAL 20 ML MDV ONE (16:55)
[2020-06-21] MEDS ORDERED: propofoL 200 MG/20 ML VIAL IV ONE (17:27)
[2020-06-21] MEDS ORDERED: fentaNYL 100 MCG/2 ML INJ ONE (17:27)
[2020-06-21] MEDS ORDERED: ROCURONIUM 50 MG/5 ML INJ IV ONE (17:27)
[2020-06-21] MEDS ORDERED: HYDROmorphone 1 MG/1 ML INJ ONE (18:29)
[2020-06-21] MEDS ORDERED: ONDANSETRON 4 MG/2 ML INJ ONE (18:30)
[2020-06-21] MEDS ORDERED: GLYCOPYRROLATE 0.4 MG/2 ML INJ ONE (18:30)
[2020-06-21] MEDS ORDERED: dexAMETHasone 20 MG/5 ML VIAL ONE (18:30)
[2020-06-21] MEDS ORDERED: KETOROLAC 30 MG/1 ML INJ ONE (18:30)
[2020-06-21] MEDS ORDERED: NEOSTIGMINE 10MG/10 ML INJ MDV ONE (18:30)
[2020-06-21] MEDS ORDERED: BUPIVACAINE/PF (0.5%) 5 MG/1 ML 30 ML VIAL INFILTRATI ONE (18:33)
[2020-06-21] MEDS ORDERED: SODIUM CHLORIDE 0.9% 1000 ML 1,000 ML ONE (18:33)
[2020-06-21] MEDS ORDERED: LIDOCAINE (1%) 10 MG/1 ML VIAL 20 ML MDV INFILTRATI ONE (18:34)
[2020-06-21] MEDS ORDERED: SODIUM CHLORIDE 0.9% IRRIG SOLN 2000 ML IR ONE (18:35)
--- NOTE | 2020-06-21 18:53 | Post Operative Note ---
Pre-op diagnosis: acute cholecystitis/umb hernia Post-op diagnosis: same Findings: severe cholecystitis; +a few very small stones in GB 1cm umb hernia with omentum incarcerated/ no bowel involvement Procedure: 1. LC 2. Open UHR Anesthesia: MARIELENA Surgeon: BRIAN MONROY [employer] Technician: MARY ROSE Estimated blood loss: minimal Pathology: list (GB) Specimen disposition: to lab Condition: stable Disposition: PACU
[2020-06-21] MEDS ORDERED: INSULIN LISPRO 100 UNIT/ML VIAL 3 mL SUB-Q ONE (19:12)
--- NOTE | 2020-06-21 19:39 | Post Anesthesia Evaluation ---
- Post Anesthesia Evaluation Patient Participated: Yes Airway Patent: Yes Stable Respiratory Function: Yes Nausea/Vomiting: No Temp > 96.8F: Yes Pain Manageable: Yes Adequeate Hydration: Yes Anesthesia Complications: No
[2020-06-22] MEDS: MORPHINE 2 MG/1 ML INJ IV PRN ×4 (02:46→20:14)
[2020-06-22 06:19] LABS: Hematocrit 39.8 % (30.3-42.9); Hemoglobin 13.3 gm/dl (10.1-14.3)
[2020-06-22 06:43] LABS: Alanine Aminotransferase 223 units/L (7-56); Albumin 3.5 g/dL (3.9-5); BUN/Creatinine Ratio 10; Blood Urea Nitrogen 8 mg/dL (7-17); Calcium 8.9 mg/dL (8.4-10.2); Hemolysis Index 1
[2020-06-22] MEDS: LEVOTHYROXINE 100 MCG TAB PO SCH (06:50)
[2020-06-22] MEDS: PANTOPRAZOLE 40 MG INJ IV SCH (10:03)
[2020-06-22] MEDS: INSULIN LISPRO 100 UNIT/ML VIAL 3 mL SUB-Q SCH ×4 (10:03→22:34)
--- NOTE | 2020-06-22 10:20 | Progress Note ---
Assessment and Plan Assessment and plan: --Transaminitis; Expected post cholecystectomy. GI evaluation noted and appreciated Trend LFTs --S/P lap cholecystectomy, umbilical hernia repair 06/21/2020 IV fluids, pain medications, continue postop care Surgery recommend regular diet Abdominal pain ; improved HIDA scan; cystic duct obstruction CT abdomen and pelvis; dilated gallbladder with gallbladder wall thickening Concerning for acute cholecystitis Lap cholecystectomy --Umbilical hernia;s/p open hernia repair Continue supportive care --Type 2 diabetes mellitus; Accu-Chek sliding scale coverage ADA diet insulin as needed --Hypertension; moderate control Antihypertensives, PRN labetalol --Hypothyroidism; --Morbid obesity; BMI 38.8 Patient needs diet modification exercise as tolerated and weight reduction when medically stable --Ongoing tobacco use; Smoking cessation counseling, Advised nicotine patch as needed Possible discharge in 1 to 2 days if stable Plan of care reviewed with the patient and her nurse I discussed with GI Dr. Grover Increase ambulation as tolerated History Interval history: I have seen and examined the patient at the bedside Patient's chart and medications reviewed Patient feels slightly better However elevation of LFTs[expected post cholecystectomy] Vital signs noted Hospitalist Physical - Constitutional Vitals: Temp Pulse Resp BP Pulse Ox 98.6 F 82 18 150/77 95 06/22/20 04:38 06/22/20 05:59 06/22/20 05:59 06/22/20 04:38 06/22/20 05:59 General appearance: Present: no acute distress, well-nourished, obese (Morbidly obese) - EENT Eyes: Present: PERRL, EOM intact - Neck Neck: Present: supple, normal ROM - Respiratory Respiratory effort: normal Respiratory: bilateral: diminished, negative: rales, rhonchi, wheezing - Extremities Extremities: no ischemia, No edema - Abdominal General gastrointestinal: soft, non-tender, non-distended, normal bowel sounds - Integumentary Integumentary: Present: clear, warm - Psychiatric Psychiatric: appropriate mood/affect, cooperative - Neurologic Neurologic: moves all extremities Results - Labs CBC & Chem 7: 06/22/20 15:22 06/22/20 04:33 Labs: Laboratory Last Values WBC 9.3 K/mm3 (4.5-11.0) 06/20/20 08:31 RBC 4.93 M/mm3 (3.65-5.03) 06/20/20 08:31 Hgb 13.3 gm/dl (10.1-14.3) 06/22/20 04:33 Hct 39.8 % (30.3-42.9) 06/22/20 04:33 MCV 90 fl (79-97) 06/20/20 08:31 MCH 31 pg (28-32) 06/20/20 08:31 MCHC 34 % (30-34) 06/20/20 08:31 RDW 16.1 % (13.2-15.2) H 06/20/20 08:31 Plt Count 272 K/mm3 (140-440) 06/20/20 08:31 Lymph % (Auto) 18.4 % (13.4-35.0) 06/20/20 08:31 [place] % (Auto) 3.8 % (0.0-7.3) 06/20/20 08:31 Eos % (Auto) 1.0 % (0.0-4.3) 06/20/20 08:31 Baso % (Auto) 1.4 % (0.0-1.8) 06/20/20 08:31 Lymph # (Auto) 1.7 K/mm3 (1.2-5.4) 06/20/20 08:31 [place] # (Auto) 0.3 K/mm3 (0.0-0.8) 06/20/20 08:31 Eos # (Auto) 0.1 K/mm3 (0.0-0.4) 06/20/20 08:31 Baso # (Auto) 0.1 K/mm3 (0.0-0.1) 06/20/20 08:31 Seg Neutrophils % 75.4 % (40.0-70.0) H 06/20/20 08:31 Seg Neutrophils # 7.0 K/mm3 (1.8-7.7) 06/20/20 08:31 Sodium 139 mmol/L (137-145) 06/22/20 04:33 Potassium 3.8 mmol/L (3.6-5.0) 06/22/20 04:33 Chloride 100.6 mmol/L (98-107) 06/22/20 04:33 Carbon Dioxide 23 mmol/L (22-30) 06/22/20 04:33 Anion Gap 19 mmol/L 06/22/20 04:33 BUN 8 mg/dL (7-17) 06/22/20 04:33 Creatinine 0.8 mg/dL (0.6-1.2) 06/22/20 04:33 Estimated GFR > 60 ml/min 06/22/20 04:33 BUN/Creatinine Ratio 10 % 06/22/20 04:33 Glucose 290 mg/dL (65-100) H 06/22/20 04:33 POC Glucose 261 (70-105) H 06/22/20 08:03 Calcium 8.9 mg/dL (8.4-10.2) 06/22/20 04:33 Phosphorus 3.10 mg/dL (2.5-4.5) 06/22/20 04:33 Magnesium 2.10 mg/dL (1.7-2.3) 06/22/20 04:33 Total Bilirubin 0.80 mg/dL (0.1-1.2) 06/22/20 04:33 AST 218 units/L (5-40) H 06/22/20 04:33 ALT 223 units/L (7-56) H 06/22/20 04:33 Alkaline Phosphatase 197 units/L (35-129) H 06/22/20 04:33 Total Protein 7.1 g/dL (6.3-8.2) 06/22/20 04:33 Albumin 3.5 g/dL (3.9-5) L 06/22/20 04:33 Albumin/Globulin Ratio 1.0 % 06/22/20 04:33 Lipase 45 units/L (13-60) 06/20/20 09:11 Urine Color Straw (Yellow) 06/20/20 08:39 Urine Turbidity Clear (Clear) 06/20/20 08:39 Urine pH 7.0 (5.0-7.0) 06/20/20 08:39 Ur Specific [place] 1.018 (1.003-1.030) 06/20/20 08:39 Urine Protein 100 mg/dl mg/dL (Negative) 06/20/20 08:39 Urine Glucose (UA) >=500 mg/dL (Negative) 06/20/20 08:39 Urine Ketones 20 mg/dL (Negative) 06/20/20 08:39 Urine Blood Neg (Negative) 06/20/20 08:39 Urine Nitrite Neg (Negative) 06/20/20 08:39 Urine Bilirubin Neg (Negative) 06/20/20 08:39 Urine Urobilinogen < 2.0 mg/dL (<2.0) 06/20/20 08:39 Ur Leukocyte Esterase Neg (Negative) 06/20/20 08:39 Urine WBC (Auto) 4.0 /HPF (0.0-6.0) 06/20/20 08:39 Urine RBC (Auto) 2.0 /HPF (0.0-6.0) 06/20/20 08:39 U Epithel Cells (Auto) 2.0 /HPF (0-13.0) 06/20/20 08:39 Urine Bacteria (Auto) 1+ /HPF (Negative) 06/20/20 08:39 Meredith/IV: Voiding Method Toilet IV Catheter Type [Left Forearm INT / Saline Lock ] IV Catheter Type [Right INT / Saline Lock Forearm] Active Medications - Current Medications Current Medications: Generic Name Dose Route Start Last Admin Trade Name Freq PRN Reason Stop Dose Admin Sodium Chloride 1,000 mls @ 100 mls/hr 06/20/20 13:45 06/21/20 08:40 Nacl 0.9% 1000 Ml IV 100 mls/hr DIRECT REVA Administration Lactated Ringer's 1,000 mls @ 100 mls/hr 06/21/20 17:00 06/21/20 16:40 Lactated Ringers IV 100 mls/hr DIRECT REVA Administration Insulin Human Lispro 0 unit 06/20/20 16:30 06/22/20 10:03 Humalog SUB-Q 4 unit ACHS REVA Administration Protocol Levothyroxine Sodium 200 mcg 06/21/20 06:00 06/22/20 06:50 Synthroid PO 200 mcg DAILY@0600 REVA Administration Morphine Sulfate 2 mg 06/20/20 13:40 06/22/20 08:42 Morphine IV 2 mg Q4H PRN Administration Pain, Moderate (4-6) Ondansetron HCl 4 mg 06/21/20 16:51 Zofran IV ONCE PRN Nausea And Vomiting Pantoprazole Sodium 40 mg 06/21/20 10:00 06/22/20 10:03 Protonix IV 06/22/20 15:00 40 mg QDAY REVA Administration Pantoprazole Sodium 40 mg 06/23/20 07:30 Protonix PO QDAC REVA
--- NOTE | 2020-06-22 12:17 | Gastroenterology Consultation ---
History of Present Illness - Reason for Consult Consult date: 06/22/20 abnormal liver enzymes Requesting physician: MASON SRIVASTAVA - History of Present Illness The patient is a 54 yo aaf who presents with 1 day onset of abd pain with n/v. She was found to have acute cholecystitis on admission; s/p lap ccy along with repair of umbilical hernia. She reports abd soreness as expected post surgery but acute symptoms from admission have resolved. noted to have new onset elevation in liver enzymes after surgery. normal prior to arrival. no biliary dilatation on imaging prior to surgery. occasional alcohol use (weekends) but no h/o alcohol abuse. fatty liver seen on imaging. Past History Past Medical History: diabetes, hypertension, hypothyroidism Past Surgical History: Other (Dental surgery) Social history: smoking, alcohol abuse. denies: prescription drug abuse Family history: hypertension Medications and Allergies Allergies Allergy/AdvReac Type Severity Reaction Status Date / Time neomycin Allergy Swelling Verified 10/31/19 09:21 Home Medications Medication Instructions Recorded Confirmed Last Taken Type Levothyroxine 200 mg PO DAILY 06/20/20 06/20/20 Unknown History Lisinopril [Zestril] 5 mg PO Q48HR 06/20/20 06/20/20 Unknown History Active Meds: Active Medications Sodium Chloride (Nacl 0.9% 1000 Ml) 1,000 mls @ 100 mls/hr IV DIRECT REVA Last Admin: 06/21/20 08:40 Dose: 100 mls/hr Documented by: Lactated Ringer's (Lactated Ringers) 1,000 mls @ 100 mls/hr IV DIRECT REVA Last Admin: 06/21/20 16:40 Dose: 100 mls/hr Documented by: Insulin Human Lispro (Humalog) 0 unit SUB-Q ACHS REVA; Protocol Last Admin: 06/22/20 10:03 Dose: 4 unit Documented by: Levothyroxine Sodium (Synthroid) 200 mcg PO DAILY@0600 [facility] Last Admin: 06/22/20 06:50 Dose: 200 mcg Documented by: Morphine Sulfate (Morphine) 2 mg IV Q4H PRN PRN Reason: Pain, Moderate (4-6) Last Admin: 06/22/20 08:42 Dose: 2 mg Documented by: Ondansetron HCl (Zofran) 4 mg IV ONCE PRN PRN Reason: Nausea And Vomiting Pantoprazole Sodium (Protonix) 40 mg IV QDAY [facility] Stop: 06/22/20 15:00 Last Admin: 06/22/20 10:03 Dose: 40 mg Documented by: Pantoprazole Sodium (Protonix) 40 mg PO QDAC [facility] Reviewed/updated patient's home and current medications Review of Systems - Review of Systems All systems: negative (per HPI) Exam - Constitutional Vital Signs: Temp Pulse Resp BP Pulse Ox 98.6 F 82 18 150/77 95 06/22/20 04:38 06/22/20 05:59 06/22/20 05:59 06/22/20 04:38 06/22/20 05:59 General appearance: no acute distress, obese - EENT Eyes: PERRL, EOM intact - Respiratory Respiratory effort: normal Respiratory: bilateral: CTA - Cardiovascular Rhythm: regular Heart Sounds: Present: S1 & S2 Extremities: No edema - Gastrointestinal General gastrointestinal: Present: soft, non-distended, other (umbilical hernia repair and surgical incision c/d/i) - Integumentary Integumentary: Present: clear, warm - Neurologic Neurological: alert and oriented x3 - Psychiatric Psychiatric: appropriate mood/affect - Labs CBC & Chem 7: 06/22/20 04:33 06/22/20 04:33 Lab Results: Laboratory Results - last 24 hr 06/21/20 06/21/20 06/21/20 13:22 16:44 19:19 Hgb Hct Sodium Potassium Chloride Carbon Dioxide Anion Gap BUN Creatinine Estimated GFR BUN/Creatinine Ratio Glucose POC Glucose 243 H 235 H 222 H Calcium Phosphorus Magnesium Total Bilirubin AST ALT Alkaline Phosphatase Total Protein Albumin Albumin/Globulin Ratio 06/21/20 06/22/20 06/22/20 21:32 04:33 04:33 Hgb 13.3 Hct 39.8 Sodium 139 Potassium 3.8 Chloride 100.6 Carbon Dioxide 23 Anion Gap 19 BUN 8 Creatinine 0.8 Estimated GFR > 60 BUN/Creatinine Ratio 10 Glucose 290 H POC Glucose 240 H Calcium 8.9 Phosphorus 3.10 Magnesium 2.10 Total Bilirubin 0.80 AST 218 H ALT 223 H Alkaline Phosphatase 197 H Total Protein 7.1 Albumin 3.5 L Albumin/Globulin Ratio 1.0 06/22/20 08:03 Hgb Hct Sodium Potassium Chloride Carbon Dioxide Anion Gap BUN Creatinine Estimated GFR BUN/Creatinine Ratio Glucose POC Glucose 261 H Calcium Phosphorus Magnesium Total Bilirubin AST ALT Alkaline Phosphatase Total Protein Albumin Albumin/Globulin Ratio Assessment and Plan 1. Abnormal liver enzymes after lap ccy and umbilical hernia repair. no biliary dilatation seen on imaging prior to surgeries; would trend labs for now and manage conservatively from gi stand point. if continues to increase, can obtain MRCP, but suspect DILI/post surgical related elevation so would just watch for now.
[2020-06-22] MEDS: SODIUM CHLORIDE 0.9% 1000 ML 1,000 ML IV SCH ×2 (12:18→21:13)
--- NOTE | 2020-06-22 15:33 | Progress Note ---
Assessment and Plan POD#1 LFts likely up from liver dissection required to remove significantly inflamed GB. Will follow trend. Low suspicion based on pre-op info that pt has choledocholithiasis. Pt told to dec oral intake until flatus returns. Encouraged to ambulate. Subjective Date of service: 06/22/20 Patient Reports: Positive: no new complaints, feels better, still having pain, no flatus, no bowel movement (pt eating minimally; no flatus/BM; OOB in room; urinating; pain controlled; LFTS up) Objective Vital Signs - 12hr 06/22/20 06/22/20 06/22/20 04:38 05:59 12:18 Temperature 98.6 F 98.1 F Pulse Rate 84 82 87 Respiratory 20 18 20 Rate Blood Pressure 150/77 157/80 O2 Sat by Pulse 90 95 95 Oximetry pt looks good - Abdomen soft, tender, bowel sounds hypoactive, other (grossly obese; drsg dry; approp TTP) - Labs 06/22/20 04:33 06/22/20 04:33 Diabetes panel 06/22/20 Range/Units 04:33 Sodium 139 (137-145) mmol/L Potassium 3.8 (3.6-5.0) mmol/L Chloride 100.6 (98-107) mmol/L Carbon Dioxide 23 (22-30) mmol/L BUN 8 (7-17) mg/dL Creatinine 0.8 (0.6-1.2) mg/dL Glucose 290 H (65-100) mg/dL Calcium 8.9 (8.4-10.2) mg/dL AST 218 H (5-40) units/L ALT 223 H (7-56) units/L Alkaline Phosphatase 197 H (35-129) units/L Total Protein 7.1 (6.3-8.2) g/dL Albumin 3.5 L (3.9-5) g/dL Calcium panel 06/22/20 Range/Units 04:33 Calcium 8.9 (8.4-10.2) mg/dL Phosphorus 3.10 (2.5-4.5) mg/dL Albumin 3.5 L (3.9-5) g/dL Pituitary panel 06/22/20 Range/Units 04:33 Sodium 139 (137-145) mmol/L Potassium 3.8 (3.6-5.0) mmol/L Chloride 100.6 (98-107) mmol/L Carbon Dioxide 23 (22-30) mmol/L BUN 8 (7-17) mg/dL Creatinine 0.8 (0.6-1.2) mg/dL Glucose 290 H (65-100) mg/dL Calcium 8.9 (8.4-10.2) mg/dL Adrenal panel 06/22/20 Range/Units 04:33 Sodium 139 (137-145) mmol/L Potassium 3.8 (3.6-5.0) mmol/L Chloride 100.6 (98-107) mmol/L Carbon Dioxide 23 (22-30) mmol/L BUN 8 (7-17) mg/dL Creatinine 0.8 (0.6-1.2) mg/dL Glucose 290 H (65-100) mg/dL Calcium 8.9 (8.4-10.2) mg/dL Total Bilirubin 0.80 (0.1-1.2) mg/dL AST 218 H (5-40) units/L ALT 223 H (7-56) units/L Alkaline Phosphatase 197 H (35-129) units/L Total Protein 7.1 (6.3-8.2) g/dL Albumin 3.5 L (3.9-5) g/dL
[2020-06-22 15:42] LABS: Basophils # (Auto) 0.1 K/mm3 (0.0-0.1); Basophils % (Auto) 0.5 % (0.0-1.8); Hemoglobin 12.6 gm/dl (10.1-14.3); Lymphocytes # (Auto) 1.3 K/mm3 (1.2-5.4); Lymphocytes % (Auto) 11.9 % (13.4-35.0); Mean Corpuscular HGB Conc 33 % (30-34); Mean Corpuscular Volume 92 fl (79-97); Monocytes # (Auto) 0.5 K/mm3 (0.0-0.8); Platelet Count 205 K/mm3 (140-440); Red Blood Count 4.14 M/mm3 (3.65-5.03)
--- NOTE | 2020-06-22 17:56 | Operative Report ---
STAFF PHYSICIAN: Jose Chambers MD [employer] COACH: Paco Sorenson MD PREOPERATIVE DIAGNOSES: 1. Acute cholecystitis. 2. Morbid obesity. 3. Umbilical hernia. POSTOPERATIVE DIAGNOSES: 1. Acute cholecystitis. 2. Morbid obesity. 3. Steatohepatitis (fatty liver). 4. Umbilical hernia. INDICATIONS: A 54-year-old female presents with signs and symptoms and radiologic evidence consistent with acute cholecystitis, is brought to the operating room urgently. OPERATION PERFORMED: 1. Laparoscopic cholecystectomy. 2. Open umbilical hernia repair (primary). ANESTHESIA: General endotracheal anesthesia. SPECIMEN SENT: Gallbladder. FINDINGS: 1. Severe acute cholecystitis. 2. Several small stones within the gallbladder all less than 3 mm in size and there was only a few of them. 3. A 1 cm umbilical hernia defect with no incarceration of bowel. 4. Morbid obesity, making surgery exceptionally difficult for both laparoscopic instrument movement and liver retraction, etc. This justifies the 22 modifier. ESTIMATED BLOOD LOSS: Minimal. COMPLICATIONS: None. DRAINS: None. DESCRIPTION OF PROCEDURE: After informed consent was obtained, the patient was taken to the operating room, placed under general endotracheal anesthesia. The patient was prepped and draped in standard surgical fashion. Surgical timeout was performed. VTE and antibiotic prophylaxis have been given appropriately. A curvilinear incision was made at the base of the umbilicus. Dissection was carried down around the umbilicus and the umbilical skin was dissected off the attached omentum. There was no involvement of bowel in the hernia. Once the fascial edges were cleared, there was approximately a 1 cm defect and we simply used this for our [place] trocar port. We placed this and created pneumoperitoneum. There was no evidence of intra-abdominal injury or any ongoing bleeding from the mesentery that had been dissected and we placed three 5 mm ports in the epigastric and right upper quadrant under direct visualization without complication. We then had difficulty due to the patient's large liver and location of her lower rib cage. With retraction, we also had inflammatory adhesions of the omentum over a very thickened and distended gallbladder. We took down these adhesions using blunt dissection with minimal bleeding and then had to drain the gallbladder, which drained bile until we could grasp it and retract it cephalad and laterally. We slowly began a dissection of a very inflamed triangle of Calot removing the node of [place] which was anterior and taking an extended period of time that was difficult due to the lack of ability for proper retraction due to the patient's obesity. Again, all this longer dissection and difficulty justifies the 22 modifier for this case, as the patient's BMI was approaching 40. We then were able to dissect out the critical view and placed a clip and we increased the size of our epigastric port to a 10 port, so we could use the 10 mm clip ductfixing plumber that had been opened inadvertently instead of the 5 mm and we clipped the cystic duct once distally, twice proximally and divided it with full visualization of the proper anatomy. We then clipped and divided the cystic artery in a similar fashion and the gallbladder was removed from the liver bed using electrocautery. This was an extremely inflamed region with some areas of edema that the gallbladder simply began to pull off with retraction and other areas that were significantly attached to the liver, requiring some burning of liver tissue to dissect out the gallbladder fully. There was also an abnormal little lobe or tongue of liver covering the medial side of the fundus of the gallbladder that was divided, removing less than 1 cm piece of liver and using a high level electrocautery to achieve hemostasis as this was necessary to get the gallbladder removed without entering into the gallbladder and spilling bile. Once the gallbladder was completely removed, we placed in an Endobag, brought it out through the umbilical port without complication. We then reestablished pneumoperitoneum, irrigated thoroughly and suctioned all irrigant from the abdominal cavity. We then ensured full hemostasis using electrocautery and due to the slightly increased liver bleeding with the dissection, we added Avitene powder as a secondary hemostatic agent. There was no bleeding at the end of surgery along with the clips being in good position. Ports were removed under direct visualization under low pneumoperitoneum without evidence of bleeding or complication. The 10 mm port went through the falciform ligament, so I did not feel this needed to be closed because there would be a very low chance of hernia in this position. The [place] trocar was removed. Pneumoperitoneum was manually released. A 0 Vicryl was used to close the umbilical fascial defect in a [id number] fashion and the stay sutures for the [place] were also tied over it, therefore, creating a double closure with more success of remaining healed despite the patient's morbid obesity. We then used #0 Vicryls, used 2 interrupted sutures to tack down the umbilical skin. We closed the deeper soft tissue layers with a running 3-0 Vicryl suture and all wounds were closed with 4-0 Monocryl in a subcuticular fashion. Sterile dressings were applied. The patient was extubated and taken to recovery room in stable fashion. JOB# [id number] TF/LARISSA
[2020-06-23] MEDS: MORPHINE 2 MG/1 ML INJ IV PRN ×4 (04:35→23:54)
[2020-06-23] MEDS: LEVOTHYROXINE 100 MCG TAB PO SCH (05:20)
[2020-06-23] MEDS: PANTOPRAZOLE 40 MG TAB PO SCH (09:31)
[2020-06-23] MEDS: INSULIN LISPRO 100 UNIT/ML VIAL 3 mL SUB-Q SCH ×4 (09:34→22:50)
[2020-06-23] MEDS: LACTATED RINGERS 1,000 ML IV SCH (13:00)
[2020-06-23 15:00] LABS: Albumin 3.4 g/dL (3.9-5); Blood Urea Nitrogen 7 mg/dL (7-17); Hemolysis Index 8
[2020-06-23 15:03] LABS: BUN/Creatinine Ratio 12
[2020-06-23 15:17] LABS: Alanine Aminotransferase 803 units/L (7-56)
--- NOTE | 2020-06-23 15:32 | Gastroenterology Progress Note ---
Assessment and Plan acute liver injury - increased liver enzymes post surgically (? transient hypotension/ductal injury, etc). cont to trend and supportive care, consider US with doppler based on progress but would manage conservatively for time being Subjective Date of service: 06/23/20 Principal diagnosis: abnormal liver enzymes Interval history: pt seen and examined; c/o abd soreness, tolerating liquids Objective - Constitutional Vitals: Temp Pulse Resp BP Pulse Ox 98.5 F 93 H 24 170/98 91 06/23/20 12:05 06/23/20 12:05 06/23/20 12:05 06/23/20 12:05 06/23/20 12:05 General appearance: no acute distress - Respiratory Respiratory effort: normal Respiratory: bilateral: CTA - Cardiovascular Rhythm: regular Heart Sounds: Present: S1 & S2 - Gastrointestinal General gastrointestinal: Present: soft, tender, non-distended - Labs CBC & Chem 7: 06/22/20 15:22 06/23/20 09:58 Labs: Laboratory Results - last 24 hr 06/22/20 06/22/20 06/22/20 15:22 16:54 22:36 WBC 10.6 RBC 4.14 Hgb 12.6 Hct 38.0 MCV 92 MCH 30 MCHC 33 RDW 16.0 H Plt Count 205 Lymph % (Auto) 11.9 L [place] % (Auto) 5.0 Eos % (Auto) 0.0 Baso % (Auto) 0.5 Lymph # (Auto) 1.3 [place] # (Auto) 0.5 Eos # (Auto) 0.0 Baso # (Auto) 0.1 Seg Neutrophils % 82.6 H Seg Neutrophils # 8.7 H Sodium Potassium Chloride Carbon Dioxide Anion Gap BUN Creatinine Estimated GFR BUN/Creatinine Ratio Glucose POC Glucose 223 H 215 H Hemoglobin A1c Calcium Total Bilirubin AST ALT Alkaline Phosphatase Total Protein Albumin Albumin/Globulin Ratio 06/23/20 06/23/20 06/23/20 05:23 07:42 09:58 WBC RBC Hgb Hct MCV MCH MCHC RDW Plt Count Lymph % (Auto) [place] % (Auto) Eos % (Auto) Baso % (Auto) Lymph # (Auto) [place] # (Auto) Eos # (Auto) Baso # (Auto) Seg Neutrophils % Seg Neutrophils # Sodium 140 Potassium 3.7 Chloride 100.6 Carbon Dioxide 21 L Anion Gap 22 BUN 7 Creatinine 0.6 Estimated GFR > 60 BUN/Creatinine Ratio 12 Glucose 289 H POC Glucose 225 H Hemoglobin A1c 11.2 H Calcium 9.0 Total Bilirubin 3.00 H AST 782 H ALT 803 H Alkaline Phosphatase 446 H Total Protein 7.1 Albumin 3.4 L Albumin/Globulin Ratio 0.9 06/23/20 12:22 WBC RBC Hgb Hct MCV MCH MCHC RDW Plt Count Lymph % (Auto) [place] % (Auto) Eos % (Auto) Baso % (Auto) Lymph # (Auto) [place] # (Auto) Eos # (Auto) Baso # (Auto) Seg Neutrophils % Seg Neutrophils # Sodium Potassium Chloride Carbon Dioxide Anion Gap BUN Creatinine Estimated GFR BUN/Creatinine Ratio Glucose POC Glucose 250 H Hemoglobin A1c Calcium Total Bilirubin AST ALT Alkaline Phosphatase Total Protein Albumin Albumin/Globulin Ratio
--- NOTE | 2020-06-23 15:48 | Progress Note ---
Assessment and Plan Assessment and plan: --Transaminitis; worsening transaminases Will trend LFTs , closely monitor, and adjust as needed s/p post cholecystectomy. GI following --S/P lap cholecystectomy, umbilical hernia repair 06/21/2020 IV fluids, pain medications, continue postop care Surgery recommend regular diet Abdominal pain ; improved HIDA scan; cystic duct obstruction CT abdomen and pelvis; dilated gallbladder with gallbladder wall thickening Concerning for acute cholecystitis Lap cholecystectomy --Umbilical hernia;s/p open hernia repair Continue supportive care --Type 2 diabetes mellitus; Accu-Chek sliding scale coverage ADA diet insulin as needed --Hypertension; moderate control Antihypertensives, PRN labetalol --Hypothyroidism; --Morbid obesity; BMI 38.8 Patient needs diet modification exercise as tolerated and weight reduction when medically stable --Ongoing tobacco use; Smoking cessation counseling, Advised nicotine patch as needed Possible discharge in 1 to 2 days if stable Plan of care reviewed with the patient and her nurse I discussed with GI Dr. Grover Increase ambulation as tolerated History Interval history: I have seen and examined the patient at the bedside Patient's chart and medications reviewed Patient feels slightly better no new complaints Vital signs reviewed Hospitalist Physical - Constitutional Vitals: Temp Pulse Resp BP Pulse Ox 98.5 F 93 H 24 170/98 91 06/23/20 12:05 06/23/20 12:05 06/23/20 12:05 06/23/20 12:05 06/23/20 12:05 General appearance: Present: no acute distress, well-nourished, obese (Morbidly obese) - EENT Eyes: Present: PERRL, EOM intact - Neck Neck: Present: supple, normal ROM - Respiratory Respiratory effort: normal Respiratory: bilateral: diminished, negative: rales, rhonchi, wheezing - Cardiovascular Rhythm: regular Heart Sounds: Present: S1 & S2 - Extremities Extremities: no ischemia, No edema - Abdominal General gastrointestinal: soft, non-tender, non-distended, normal bowel sounds - Integumentary Integumentary: Present: clear, warm - Psychiatric Psychiatric: appropriate mood/affect, cooperative - Neurologic Neurologic: moves all extremities Results - Labs CBC & Chem 7: 06/22/20 15:22 06/23/20 09:58 Labs: Laboratory Last Values WBC 10.6 K/mm3 (4.5-11.0) 06/22/20 15:22 RBC 4.14 M/mm3 (3.65-5.03) 06/22/20 15:22 Hgb 12.6 gm/dl (10.1-14.3) 06/22/20 15:22 Hct 38.0 % (30.3-42.9) 06/22/20 15:22 MCV 92 fl (79-97) 06/22/20 15:22 MCH 30 pg (28-32) 06/22/20 15: MCHC 33 % (30-34) 06/22/20 15:22 RDW 16.0 % (13.2-15.2) H 06/22/20 15:22 Plt Count 205 K/mm3 (140-440) 06/22/20 15:22 Lymph % (Auto) 11.9 % (13.4-35.0) L 06/22/20 15:22 [place] % (Auto) 5.0 % (0.0-7.3) 06/22/20 15: Eos % (Auto) 0.0 % (0.0-4.3) 06/22/20 15:22 Baso % (Auto) 0.5 % (0.0-1.8) 06/22/20 15:22 Lymph # (Auto) 1.3 K/mm3 (1.2-5.4) 06/22/20 15:22 [place] # (Auto) 0.5 K/mm3 (0.0-0.8) 06/22/20 15:22 Eos # (Auto) 0.0 K/mm3 (0.0-0.4) 06/22/20 15:22 Baso # (Auto) 0.1 K/mm3 (0.0-0.1) 06/22/20 15:22 Seg Neutrophils % 82.6 % (40.0-70.0) H 06/22/20 15:22 Seg Neutrophils # 8.7 K/mm3 (1.8-7.7) H 06/22/20 15:22 Sodium 140 mmol/L (137-145) 06/23/20 09:58 Potassium 3.7 mmol/L (3.6-5.0) 06/23/20 09:58 Chloride 100.6 mmol/L (98-107) 06/23/20 09:58 Carbon Dioxide 21 mmol/L (22-30) L 06/23/20 09:58 Anion Gap 22 mmol/L 06/23/20 09:58 BUN 7 mg/dL (7-17) 06/23/20 09:58 Creatinine 0.6 mg/dL (0.6-1.2) 06/23/20 09:58 Estimated GFR > 60 ml/min 06/23/20 09:58 BUN/Creatinine Ratio 12 % 06/23/20 09:58 Glucose 289 mg/dL (65-100) H 06/23/20 09:58 POC Glucose 250 (70-105) H 06/23/20 12:22 Hemoglobin A1c 11.2 % (4-6) H 06/23/20 05:23 Calcium 9.0 mg/dL (8.4-10.2) 06/23/20 09:58 Phosphorus 3.10 mg/dL (2.5-4.5) 06/22/20 04:33 Magnesium 2.10 mg/dL (1.7-2.3) 06/22/20 04:33 Total Bilirubin 3.00 mg/dL (0.1-1.2) H 06/23/20 09:58 AST 782 units/L (5-40) H 06/23/20 09:58 ALT 803 units/L (7-56) H 06/23/20 09:58 Alkaline Phosphatase 446 units/L (35-129) H 06/23/20 09:58 Total Protein 7.1 g/dL (6.3-8.2) 06/23/20 09:58 Albumin 3.4 g/dL (3.9-5) L 06/23/20 09:58 Albumin/Globulin Ratio 0.9 % 06/23/20 09:58 Lipase 45 units/L (13-60) 06/20/20 09:11 Urine Color Straw (Yellow) 06/20/20 08:39 Urine Turbidity Clear (Clear) 06/20/20 08:39 Urine pH 7.0 (5.0-7.0) 06/20/20 08:39 Ur Specific [place] 1.018 (1.003-1.030) 06/20/20 08:39 Urine Protein 100 mg/dl mg/dL (Negative) 06/20/20 08:39 Urine Glucose (UA) >=500 mg/dL (Negative) 06/20/20 08:39 Urine Ketones 20 mg/dL (Negative) 06/20/20 08:39 Urine Blood Neg (Negative) 06/20/20 08:39 Urine Nitrite Neg (Negative) 06/20/20 08:39 Urine Bilirubin Neg (Negative) 06/20/20 08:39 Urine Urobilinogen < 2.0 mg/dL (<2.0) 06/20/20 08:39 Ur Leukocyte Esterase Neg (Negative) 06/20/20 08:39 Urine WBC (Auto) 4.0 /HPF (0.0-6.0) 06/20/20 08:39 Urine RBC (Auto) 2.0 /HPF (0.0-6.0) 06/20/20 08:39 U Epithel Cells (Auto) 2.0 /HPF (0-13.0) 06/20/20 08:39 Urine Bacteria (Auto) 1+ /HPF (Negative) 06/20/20 08:39 Meredith/IV: Voiding Method Toilet IV Catheter Type [Left Forearm INT / Saline Lock ] IV Catheter Type [Right INT / Saline Lock Forearm] Active Medications - Current Medications Current Medications: Generic Name Dose Route Start Last Admin Trade Name Freq PRN Reason Stop Dose Admin Sodium Chloride 1,000 mls @ 100 mls/hr 06/20/20 13:45 06/22/20 21:13 Nacl 0.9% 1000 Ml IV 100 mls/hr DIRECT REVA Administration Lactated Ringer's 1,000 mls @ 100 mls/hr 06/21/20 17:00 06/21/20 16:40 Lactated Ringers IV 100 mls/hr DIRECT REVA Administration Insulin Human Lispro 0 unit 06/20/20 16:30 06/23/20 13:46 Humalog SUB-Q 4 unit ACHS REVA Administration Protocol Levothyroxine Sodium 200 mcg 06/21/20 06:00 06/23/20 05:20 Synthroid PO 200 mcg DAILY@0600 REVA Administration Morphine Sulfate 2 mg 06/20/20 13:40 06/23/20 09:31 Morphine IV 2 mg Q4H PRN Administration Pain, Moderate (4-6) Ondansetron HCl 4 mg 06/21/20 16:51 Zofran IV ONCE PRN Nausea And Vomiting Pantoprazole Sodium 40 mg 06/23/20 07:30 06/23/20 09:31 Protonix PO 40 mg QDAC REVA Administration
[2020-06-23] MEDS: diphenhydrAMINE 50 MG/ML VIAL IV PRN ×2 (17:45→23:54)
[2020-06-23] MEDS: SODIUM CHLORIDE 0.9% 1000 ML 1,000 ML IV SCH (21:13)
[2020-06-24] MEDS: diphenhydrAMINE 50 MG/ML VIAL IV PRN (05:53)
[2020-06-24] MEDS: MORPHINE 2 MG/1 ML INJ IV PRN ×4 (05:53→21:26)
[2020-06-24] MEDS: LEVOTHYROXINE 100 MCG TAB PO SCH (05:53)
[2020-06-24] MEDS: SODIUM CHLORIDE 0.9% 1000 ML 1,000 ML IV SCH (06:07)
--- NOTE | 2020-06-24 08:00 | Progress Note ---
Assessment and Plan Assessment and plan: --Transaminitis; worsening liver function tests s/p post cholecystectomy. GI, surgery following Surgery recommend MRCP, continue current management Abdominal ultrasound;Significant gallbladder distention without cholelithiasis or cholecystitis. positive sonographic Prado's sign. HIDA scan; cystic duct obstruction --S/P lap cholecystectomy, umbilical hernia repair 06/21/2020 IV fluids, pain medications, continue postop care Surgery recommend regular diet Abdominal pain ; present on admission, improved HIDA scan; cystic duct obstruction CT abdomen and pelvis; dilated gallbladder with gallbladder wall thickening s/p Lap cholecystectomy --Umbilical hernia;s/p open hernia repair Continue supportive care --Uncontrolled diabetes mellitus; Hemoglobin A1c 11.2, diabetic education, nutrition education Accu-Chek, sliding scale coverage, ADA diet And long-acting insulins Novolin 70/30 started 6 units twice a day increase as needed --Hypertension; moderate control Start hydralazine, PRN labetalol Pain control --Hypothyroidism; continue Synthroid --Obesity; BMI 38.8 Patient needs diet modification exercise as tolerated and weight reduction when medically stable --Ongoing tobacco use; Smoking cessation counseling, Advised nicotine patch as needed --DVT prophylaxis; Lovenox Closely monitor the patient and adjust management as needed Follow MRCP study, follow GI and surgery recommendations Disposition; discharge when patient is stable and cleared by GI and surgery Brief history; 54-year-old obese -[place]ian female patient with significant past medical history of type 2 diabetes mellitus hypothyroidism and hypertension ongoing tobacco use was admitted with nausea vomiting abdominal pain .work-up is possible acute cholecystitis. evaluated by surgeon Patient had lap cholecystectomy and open repair of umbilical hernia, complicated by acute transaminitis, worsening LFTs, scheduled for MRCP today. History Interval history: I have seen and examined the patient at the bedside Patient's chart and current medications reviewed Patient status post cholecystectomy complicated by acute transaminitis Worsening LFTs Patient denies nausea vomiting or abdominal pain Vital signs reviewed Hospitalist Physical - Constitutional Vitals: Temp Pulse Resp BP Pulse Ox 99.1 F 98 H 20 172/88 95 06/24/20 06:16 06/24/20 06:16 06/24/20 06:16 06/24/20 06:16 06/24/20 06:16 General appearance: Present: no acute distress, well-nourished, obese (Morbidly obese) - EENT Eyes: Present: PERRL, EOM intact - Neck Neck: Present: supple, normal ROM - Respiratory Respiratory effort: normal Respiratory: bilateral: diminished, negative: rales, rhonchi, wheezing - Cardiovascular Rhythm: regular Heart Sounds: Present: S1 & S2 - Extremities Extremities: no ischemia, No edema - Abdominal General gastrointestinal: soft, non-tender, non-distended - Integumentary Integumentary: Present: clear, warm - Psychiatric Psychiatric: appropriate mood/affect, cooperative - Neurologic Neurologic: moves all extremities Results - Labs CBC & Chem 7: 06/24/20 11:08 06/24/20 11:08 Labs: Laboratory Last Values WBC 10.6 K/mm3 (4.5-11.0) 06/22/20 15: RBC 4.14 M/mm3 (3.65-5.03) 06/22/20 15:22 Hgb 12.6 gm/dl (10.1-14.3) 06/22/20 15: Hct 38.0 % (30.3-42.9) 06/22/20 15:22 MCV 92 fl (79-97) 06/22/20 15:22 MCH 30 pg (28-32) 06/22/20 15: MCHC 33 % (30-34) 06/22/20 15: RDW 16.0 % (13.2-15.2) H 06/22/20 15:22 Plt Count 205 K/mm3 (140-440) 06/22/20 15:22 Lymph % (Auto) 11.9 % (13.4-35.0) L 06/22/20 15:22 [place] % (Auto) 5.0 % (0.0-7.3) 06/22/20 15:22 Eos % (Auto) 0.0 % (0.0-4.3) 06/22/20 15:22 Baso % (Auto) 0.5 % (0.0-1.8) 06/22/20 15:22 Lymph # (Auto) 1.3 K/mm3 (1.2-5.4) 06/22/20 15:22 [place] # (Auto) 0.5 K/mm3 (0.0-0.8) 06/22/20 15:22 Eos # (Auto) 0.0 K/mm3 (0.0-0.4) 06/22/20 15:22 Baso # (Auto) 0.1 K/mm3 (0.0-0.1) 06/22/20 15:22 Seg Neutrophils % 82.6 % (40.0-70.0) H 06/22/20 15:22 Seg Neutrophils # 8.7 K/mm3 (1.8-7.7) H 06/22/20 15:22 Sodium 140 mmol/L (137-145) 06/23/20 09:58 Potassium 3.7 mmol/L (3.6-5.0) 06/23/20 09:58 Chloride 100.6 mmol/L (98-107) 06/23/20 09:58 Carbon Dioxide 21 mmol/L (22-30) L 06/23/20 09:58 Anion Gap 22 mmol/L 06/23/20 09:58 BUN 7 mg/dL (7-17) 06/23/20 09:58 Creatinine 0.6 mg/dL (0.6-1.2) 06/23/20 09:58 Estimated GFR > 60 ml/min 06/23/20 09:58 BUN/Creatinine Ratio 12 % 06/23/20 09:58 Glucose 289 mg/dL (65-100) H 06/23/20 09:58 POC Glucose 188 (70-105) H 06/24/20 07:58 Hemoglobin A1c 11.2 % (4-6) H 06/23/20 05:23 Calcium 9.0 mg/dL (8.4-10.2) 06/23/20 09:58 Phosphorus 3.10 mg/dL (2.5-4.5) 06/22/20 04:33 Magnesium 2.10 mg/dL (1.7-2.3) 06/22/20 04:33 Total Bilirubin 3.00 mg/dL (0.1-1.2) H 06/23/20 09:58 AST 782 units/L (5-40) H 06/23/20 09:58 ALT 803 units/L (7-56) H 06/23/20 09:58 Alkaline Phosphatase 446 units/L (35-129) H 06/23/20 09:58 Total Protein 7.1 g/dL (6.3-8.2) 06/23/20 09:58 Albumin 3.4 g/dL (3.9-5) L 06/23/20 09:58 Albumin/Globulin Ratio 0.9 % 06/23/20 09:58 Lipase 45 units/L (13-60) 06/20/20 09:11 Urine Color Straw (Yellow) 06/20/20 08:39 Urine Turbidity Clear (Clear) 06/20/20 08:39 Urine pH 7.0 (5.0-7.0) 06/20/20 08:39 Ur Specific [place] 1.018 (1.003-1.030) 06/20/20 08:39 Urine Protein 100 mg/dl mg/dL (Negative) 06/20/20 08:39 Urine Glucose (UA) >=500 mg/dL (Negative) 06/20/20 08:39 Urine Ketones 20 mg/dL (Negative) 06/20/20 08:39 Urine Blood Neg (Negative) 06/20/20 08:39 Urine Nitrite Neg (Negative) 06/20/20 08:39 Urine Bilirubin Neg (Negative) 06/20/20 08:39 Urine Urobilinogen < 2.0 mg/dL (<2.0) 06/20/20 08:39 Ur Leukocyte Esterase Neg (Negative) 06/20/20 08:39 Urine WBC (Auto) 4.0 /HPF (0.0-6.0) 06/20/20 08:39 Urine RBC (Auto) 2.0 /HPF (0.0-6.0) 06/20/20 08:39 U Epithel Cells (Auto) 2.0 /HPF (0-13.0) 06/20/20 08:39 Urine Bacteria (Auto) 1+ /HPF (Negative) 06/20/20 08:39 Meredith/IV: Voiding Method Toilet IV Catheter Type [Left Forearm INT / Saline Lock ] IV Catheter Type [Right INT / Saline Lock Forearm] Active Medications - Current Medications Current Medications: Generic Name Dose Route Start Last Admin Trade Name Freq PRN Reason Stop Dose Admin Diphenhydramine HCl 25 mg 06/23/20 15:44 06/24/20 05:53 Benadryl IV 25 mg Q6H PRN Administration Itching Sodium Chloride 1,000 mls @ 100 mls/hr 06/20/20 13:45 06/24/20 06:07 Nacl 0.9% 1000 Ml IV 100 mls/hr DIRECT REVA Administration Lactated Ringer's 1,000 mls @ 100 mls/hr 06/21/20 17:00 06/23/20 13:00 Lactated Ringers IV 100 mls/hr DIRECT REVA Administration Insulin Human Isoph/Insulin Regular 6 unit 06/24/20 08:00 Humulin 70/30 SUB-Q BIDDIAB REVA Insulin Human Lispro 0 unit 06/20/20 16:30 06/23/20 22:50 Humalog SUB-Q 3 unit ACHS REVA Administration Protocol Levothyroxine Sodium 200 mcg 06/21/20 06:00 06/24/20 05:53 Synthroid PO 200 mcg DAILY@0600 REVA Administration Morphine Sulfate 2 mg 06/20/20 13:40 06/24/20 05:53 Morphine IV 2 mg Q4H PRN Administration Pain, Moderate (4-6) Ondansetron HCl 4 mg 06/21/20 16:51 Zofran IV ONCE PRN Nausea And Vomiting Pantoprazole Sodium 40 mg 06/23/20 07:30 06/23/20 09:31 Protonix PO 40 mg QDAC REVA Administration
[2020-06-24] MEDS: INSULIN LISPRO 100 UNIT/ML VIAL 3 mL SUB-Q SCH ×4 (08:24→21:27)
[2020-06-24] MEDS: INSULIN NPH/REGULAR 70/30 INJ SUB-Q SCH ×2 (08:46→17:29)
--- NOTE | 2020-06-24 09:31 | Magnetic Resonance Report ---
MR abdomen MRCP INDICATION / CLINICAL INFORMATION: transaminasemia/hyperbilirubinemia; s/p LC. TECHNIQUE: Multiplanar, multisequence MR images were obtained. COMPARISON: CT abdomen and pelvis 06/21/2020. FINDINGS: The parenchymal organs are unremarkable in appearance other than mild fatty infiltration of the liver . Status post interval cholecystectomy with mild fluid at the gallbladder fossa. There is trace fluid adjacent to the liver. Suspicious postoperative fluid collection. A small pericardial effusion and trace pleural effusions a re also present. The bile duct and pancreatic duct are well imaged. No significant dilatation or intraluminal filling defect is identified. Imaged bowel and soft tissues are unremarkable. IMPRESSION: 1. Interval cholecystectomy. No biliary dilatation or suspicious fluid collection. 2. Expected postsurgical change. Signer Name: Julián Raines MD Signed: 06/24/2020 9:27 AM Workstation Name: [id number]
[2020-06-24] MEDS: LISINOPRIL 5 MG TAB PO SCH (10:44)
[2020-06-24] MEDS: PANTOPRAZOLE 40 MG TAB PO SCH (10:45)
--- NOTE | 2020-06-24 11:22 | Gastroenterology Progress Note ---
Assessment and Plan Acute liver injury - new onset after CCY; MRCP without biliary obstruction. suspect ischemic hepatitis given pattern and onset of elevation. cont to trend levels and hopefully will improve soon. will follow up labs Subjective Date of service: 06/24/20 Principal diagnosis: abnormal liver enzymes Interval history: pt c/o abd soreness - unchanged; tolerating current diet. Objective - Constitutional Vitals: Temp Pulse Resp BP Pulse Ox 99.1 F 98 H 20 164/94 95 06/24/20 06:16 06/24/20 06:16 06/24/20 06:16 06/24/20 10:44 06/24/20 06:16 General appearance: no acute distress - Respiratory Respiratory effort: normal Respiratory: bilateral: CTA - Cardiovascular Rhythm: regular Heart Sounds: Present: S1 & S2 - Gastrointestinal General gastrointestinal: Present: soft, tender - Neurologic Neurological: alert and oriented x3 - Labs CBC & Chem 7: 06/22/20 15:22 06/23/20 09:58 Labs: Laboratory Results - last 24 hr 06/23/20 06/23/20 06/23/20 09:58 12:22 17:43 Sodium 140 Potassium 3.7 Chloride 100.6 Carbon Dioxide 21 L Anion Gap 22 BUN 7 Creatinine 0.6 Estimated GFR > 60 BUN/Creatinine Ratio 12 Glucose 289 H POC Glucose 250 H 218 H Calcium 9.0 Total Bilirubin 3.00 H AST 782 H ALT 803 H Alkaline Phosphatase 446 H Total Protein 7.1 Albumin 3.4 L Albumin/Globulin Ratio 0.9 06/23/20 06/24/20 22:45 07:58 Sodium Potassium Chloride Carbon Dioxide Anion Gap BUN Creatinine Estimated GFR BUN/Creatinine Ratio Glucose POC Glucose 223 H 188 H Calcium Total Bilirubin AST ALT Alkaline Phosphatase Total Protein Albumin Albumin/Globulin Ratio
[2020-06-24 11:38] LABS: Basophils % (Auto) 0.6 % (0.0-1.8); Eosinophils # (Auto) 0.1 K/mm3 (0.0-0.4); Eosinophils % (Auto) 0.9 % (0.0-4.3); Hematocrit 37.5 % (30.3-42.9); Hemoglobin 12.8 gm/dl (10.1-14.3); Lymphocytes # (Auto) 1.1 K/mm3 (1.2-5.4); Lymphocytes % (Auto) 16.2 % (13.4-35.0); Mean Corpuscular HGB Conc 34 % (30-34); Mean Corpuscular Volume 89 fl (79-97); Monocytes # (Auto) 0.6 K/mm3 (0.0-0.8); Monocytes % (Auto) 8.4 % (0.0-7.3); Platelet Count 224 K/mm3 (140-440); Red Blood Count 4.22 M/mm3 (3.65-5.03); Red Cell Distribution Width 16.1 % (13.2-15.2)
[2020-06-24 12:01] LABS: Alanine Aminotransferase 620 units/L (7-56); Albumin 3.1 g/dL (3.9-5); BUN/Creatinine Ratio 10; Blood Urea Nitrogen 5 mg/dL (7-17); Calcium 9.3 mg/dL (8.4-10.2); Hemolysis Index 6
[2020-06-24] MEDS: hydrALAZINE 25 MG TAB PO SCH ×2 (13:28→21:01)
[2020-06-24] MEDS: ENOXAPARIN 40 MG/0.4 ML INJ SUB-Q SCH (21:01)
[2020-06-25] MEDS: MORPHINE 2 MG/1 ML INJ IV PRN ×3 (03:22→21:10)
[2020-06-25] MEDS: hydrALAZINE 25 MG TAB PO SCH ×3 (06:16→21:11)
[2020-06-25] MEDS: LEVOTHYROXINE 100 MCG TAB PO SCH (06:16)
[2020-06-25] MEDS: INSULIN NPH/REGULAR 70/30 INJ SUB-Q SCH ×2 (09:47→17:09)
[2020-06-25] MEDS: INSULIN LISPRO 100 UNIT/ML VIAL 3 mL SUB-Q SCH ×4 (09:47→21:24)
[2020-06-25] MEDS: PANTOPRAZOLE 40 MG TAB PO SCH (09:48)
[2020-06-25] MEDS: LISINOPRIL 5 MG TAB PO SCH (09:48)
[2020-06-25 10:37] LABS: Basophils # (Auto) 0.1 K/mm3 (0.0-0.1); Eosinophils # (Auto) 0.1 K/mm3 (0.0-0.4); Eosinophils % (Auto) 2.3 % (0.0-4.3); Hematocrit 36.4 % (30.3-42.9); Hemoglobin 12.4 gm/dl (10.1-14.3); Lymphocytes # (Auto) 1.3 K/mm3 (1.2-5.4); Lymphocytes % (Auto) 22.2 % (13.4-35.0); Mean Corpuscular HGB Conc 34 % (30-34); Mean Corpuscular Volume 89 fl (79-97); Monocytes # (Auto) 0.6 K/mm3 (0.0-0.8); Monocytes % (Auto) 9.7 % (0.0-7.3); Platelet Count 218 K/mm3 (140-440); Red Cell Distribution Width 16.2 % (13.2-15.2)
[2020-06-25 10:53] LABS: Alanine Aminotransferase 533 units/L (7-56); Albumin 3.3 g/dL (3.9-5); Blood Urea Nitrogen 5 mg/dL (7-17); Hemolysis Index 1
[2020-06-25 10:55] LABS: BUN/Creatinine Ratio 8
[2020-06-25] MEDS ORDERED: POTASSIUM CHLORIDE ER 20 MEQ TAB PO SCH (12:00)
--- NOTE | 2020-06-25 14:37 | Progress Note ---
Assessment and Plan Assessment and plan: 54-year-old obese -[place] female patient with significant past medical history of type 2 diabetes mellitus hypothyroidism and hypertension ongoing tobacco use was admitted with nausea vomiting abdominal pain .work-up is possible acute cholecystitis. evaluated by surgeon Patient had lap cholecyst ectomy and open repair of umbilical hernia, complicated by acute transaminitis, worsening LFTs, . 06/25: Continue supportive care GI input is noted. We will continue to monitor improvement of liver function. Status of counseling with the patient about her alcohol use she states that due to her job she smokes about half a pack a day and drinks 6 packs a week she understands need to cut down. Discharge when okay with GI. Acute liver injury - new onset after CCY; MRCP without biliary obstruction. suspect ischemic hepatitis given pattern and onset of elevation. cont to trend levels and hopefully will improve soon. --Patient status post cholecystectomy complicated by acute transaminitis Worsening LFTs --Transaminitis; worsening liver function tests s/p post cholecystectomy. GI, surgery following Surgery recommend MRCP, continue current management --Abdominal ultrasound;Significant gallbladder distention without cholelithiasis or cholecystitis. positive sonographic Prado's sign. HIDA scan; cystic duct obstruction --S/P lap cholecystectomy, umbilical hernia repair 06/21/2020 IV fluids, pain medications, continue postop care Surgery recommend regular diet --Abdominal pain ; present on admission, improved HIDA scan; cystic duct obstruction CT abdomen and pelvis; dilated gallbladder with gallbladder wall thickening s/p Lap cholecystectomy --Umbilical hernia;s/p open hernia repair Continue supportive care --Uncontrolled diabetes mellitus; Hemoglobin A1c 11.2, diabetic education, nutrition education Accu-Chek, sliding scale coverage, ADA diet And long-acting insulins Novolin 70/30 started 6 units twice a day increase as needed --Hypertension; moderate control Start hydralazine, PRN labetalol Pain control --Hypothyroidism; continue Synthroid --Obesity; BMI 38.8 Patient needs diet modification exercise as tolerated and weight reduction when medically stable --Ongoing tobacco use; Smoking cessation counseling, Advised nicotine patch as needed --DVT prophylaxis; Lovenox Closely monitor the patient and adjust management as needed Follow MRCP study, follow GI and surgery recommendations Disposition; discharge when patient is stable and cleared by GI and surgery History Interval history: Patient seen and examined no acute distress still with some abdominal pain and headache denies any chest pain nausea vomiting. Reports chronically elevated blood sugar at home. Hospitalist Physical - Constitutional Vitals: Temp Pulse Resp BP Pulse Ox 98.1 F 79 18 173/93 97 06/25/20 11:19 06/25/20 13:00 06/25/20 11:19 06/25/20 13:00 06/25/20 11:20 General appearance: Present: no acute distress, well-nourished, obese (Morbidly obese) - EENT Eyes: Present: PERRL, EOM intact ENT: hearing intact, clear oral mucosa - Neck Neck: Present: supple, normal ROM - Respiratory Respiratory effort: normal Respiratory: bilateral: CTA - Cardiovascular Rhythm: regular Heart Sounds: Present: S1 & S2. Absent: systolic murmur, diastolic murmur - Extremities Extremities: no ischemia, pulses intact, pulses symmetrical, No edema, normal temperature, normal color, Full ROM - Abdominal General gastrointestinal: soft, non-tender, non-distended Localized gastrointestinal: tender: diffuse - Integumentary Integumentary: Present: clear, warm - Psychiatric Psychiatric: appropriate mood/affect, intact judgment & insight, memory intact, cooperative - Neurologic Neurologic: CNII-XII intact, moves all extremities - Allied Health Allied health notes reviewed: nursing Results - Labs CBC & Chem 7: 06/25/20 09:47 06/25/20 09:47 Labs: Laboratory Last Values WBC 5.8 K/mm3 (4.5-11.0) 06/25/20 09:47 RBC 4.10 M/mm3 (3.65-5.03) 06/25/20 09:47 Hgb 12.4 gm/dl (10.1-14.3) 06/25/20 09:47 Hct 36.4 % (30.3-42.9) 06/25/20 09:47 MCV 89 fl (79-97) 06/25/20 09:47 MCH 30 pg (28-32) 06/25/20 09:47 MCHC 34 % (30-34) 06/25/20 09:47 RDW 16.2 % (13.2-15.2) H 06/25/20 09:47 Plt Count 218 K/mm3 (140-440) 06/25/20 09:47 Lymph % (Auto) 22.2 % (13.4-35.0) 06/25/20 09:47 [place] % (Auto) 9.7 % (0.0-7.3) H 06/25/20 09:47 Eos % (Auto) 2.3 % (0.0-4.3) 06/25/20 09:47 Baso % (Auto) 1.0 % (0.0-1.8) 06/25/20 09:47 Lymph # (Auto) 1.3 K/mm3 (1.2-5.4) 06/25/20 09:47 [place] # (Auto) 0.6 K/mm3 (0.0-0.8) 06/25/20 09:47 Eos # (Auto) 0.1 K/mm3 (0.0-0.4) 06/25/20 09:47 Baso # (Auto) 0.1 K/mm3 (0.0-0.1) 06/25/20 09:47 Seg Neutrophils % 64.8 % (40.0-70.0) 06/25/20 09:47 Seg Neutrophils # 3.7 K/mm3 (1.8-7.7) 06/25/20 09:47 Sodium 137 mmol/L (137-145) 06/25/20 09:47 Potassium 3.3 mmol/L (3.6-5.0) L 06/25/20 09:47 Chloride 95.0 mmol/L (98-107) L 06/25/20 09:47 Carbon Dioxide 31 mmol/L (22-30) H 06/25/20 09:47 Anion Gap 14 mmol/L 06/25/20 09:47 BUN 5 mg/dL (7-17) L 06/25/20 09:47 Creatinine 0.6 mg/dL (0.6-1.2) 06/25/20 09:47 Estimated GFR > 60 ml/min 06/25/20 09:47 BUN/Creatinine Ratio 8 % 06/25/20 09:47 Glucose 288 mg/dL (65-100) H 06/25/20 09:47 POC Glucose 234 (70-105) H 06/25/20 11:17 Hemoglobin A1c 11.2 % (4-6) H 06/23/20 05:23 Calcium 9.0 mg/dL (8.4-10.2) 06/25/20 09:47 Phosphorus 3.10 mg/dL (2.5-4.5) 06/22/20 04:33 Magnesium 2.10 mg/dL (1.7-2.3) 06/22/20 04:33 Total Bilirubin 4.00 mg/dL (0.1-1.2) H 06/25/20 09:47 AST 267 units/L (5-40) H 06/25/20 09:47 ALT 533 units/L (7-56) H 06/25/20 09:47 Alkaline Phosphatase 449 units/L (35-129) H 06/25/20 09:47 Total Protein 6.1 g/dL (6.3-8.2) L 06/25/20 09:47 Albumin 3.3 g/dL (3.9-5) L 06/25/20 09:47 Albumin/Globulin Ratio 1.2 % 06/25/20 09:47 Lipase 45 units/L (13-60) 06/20/20 09:11 Urine Color Straw (Yellow) 06/20/20 08:39 Urine Turbidity Clear (Clear) 06/20/20 08:39 Urine pH 7.0 (5.0-7.0) 06/20/20 08:39 Ur Specific [place] 1.018 (1.003-1.030) 06/20/20 08:39 Urine Protein 100 mg/dl mg/dL (Negative) 06/20/20 08:39 Urine Glucose (UA) >=500 mg/dL (Negative) 06/20/20 08:39 Urine Ketones 20 mg/dL (Negative) 06/20/20 08:39 Urine Blood Neg (Negative) 06/20/20 08:39 Urine Nitrite Neg (Negative) 06/20/20 08:39 Urine Bilirubin Neg (Negative) 06/20/20 08:39 Urine Urobilinogen < 2.0 mg/dL (<2.0) 06/20/20 08:39 Ur Leukocyte Esterase Neg (Negative) 06/20/20 08:39 Urine WBC (Auto) 4.0 /HPF (0.0-6.0) 06/20/20 08:39 Urine RBC (Auto) 2.0 /HPF (0.0-6.0) 06/20/20 08:39 U Epithel Cells (Auto) 2.0 /HPF (0-13.0) 06/20/20 08:39 Urine Bacteria (Auto) 1+ /HPF (Negative) 06/20/20 08:39 Meredith/IV: Voiding Method Toilet IV Catheter Type [Left Forearm Peripheral IV ] IV Catheter Type [Right INT / Saline Lock Forearm] Active Medications - Current Medications Current Medications: Generic Name Dose Route Start Last Admin Trade Name Freq PRN Reason Stop Dose Admin Diphenhydramine HCl 25 mg 06/23/20 15:44 06/24/20 05:53 Benadryl IV 25 mg Q6H PRN Administration Itching Enoxaparin Sodium 40 mg 06/24/20 22:00 06/24/20 21:01 Enoxaparin SUB-Q 40 mg QDAY@2200 REVA Administration Protocol Hydralazine HCl 25 mg 06/24/20 14:00 06/25/20 13:00 Apresoline PO 25 mg Q8HR REVA Administration Insulin Human Isoph/Insulin Regular 6 unit 06/24/20 08:30 06/25/20 09:47 Humulin 70/30 SUB-Q 6 unit BIDDIAB REVA Administration Insulin Human Lispro 0 unit 06/20/20 16:30 06/25/20 13:02 Humalog SUB-Q 3 unit ACHS REVA Administration Protocol Labetalol HCl 10 mg 06/24/20 08:30 Labetalol IV Q4H PRN Hypertension Levothyroxine Sodium 200 mcg 06/21/20 06:00 06/25/20 06:16 Synthroid PO 200 mcg DAILY@0600 REVA Administration Lisinopril 5 mg 06/24/20 10:00 06/25/20 09:48 Zestril PO 5 mg QDAY REVA Administration Morphine Sulfate 2 mg 06/20/20 13:40 06/25/20 09:58 Morphine IV 2 mg Q4H PRN Administration Pain, Moderate (4-6) Pantoprazole Sodium 40 mg 06/23/20 07:30 06/25/20 09:48 Protonix PO 40 mg QDAC REVA Administration Potassium Chloride 40 meq 06/25/20 12:00 06/25/20 12:58 K-Dur PO 06/25/20 15:00 40 meq ONCE REVA Administration
--- NOTE | 2020-06-25 18:21 | Progress Note ---
Assessment and Plan POD#4 LFTs/bili improving MRCp without operative complication or CBD stone, so agree with GI that this may be steatohepatosis baseline with mild ischemic injury from possible hypotension during surgery. Agree with d/c tomorrow if labs continue to trend down with f/u with GI to monitor complete normalization of labs. No f/u with me needed as pt has no elio and I am comfortable that there is no post-op complication. please send pt home with 8-10 Perc 5/325. thanks pt told she can remove dressings today and shower. No lifting >20 pounds or strenuous activity for 2 months (higher risk of hernia due to morbid obesity). Regular diet will sign off- please call if questions [phone] thanks Subjective Date of service: 06/25/20 Patient Reports: Positive: feels better, pain is less, tolerating a regular diet, flatus, no bowel movement Objective Vital Signs - 12hr 06/25/20 06/25/20 06/25/20 09:48 11:00 11:19 Temperature 98.1 F Pulse Rate 81 79 Respiratory 18 Rate Blood Pressure 152/76 173/93 O2 Sat by Pulse 98 96 Oximetry 06/25/20 06/25/20 06/25/20 11:20 13:00 15:48 Temperature 98.1 F Pulse Rate 80 79 79 Respiratory 18 Rate Blood Pressure 173/93 171/95 O2 Sat by Pulse 97 98 Oximetry pt looks great - Abdomen soft, not tender, bowel sounds normal, wound (drsg dry; approp TTP; +BS) - Labs 06/25/20 09:47 06/25/20 09:47 Diabetes panel 06/25/20 Range/Units 09:47 Sodium 137 (137-145) mmol/L Potassium 3.3 L (3.6-5.0) mmol/L Chloride 95.0 L (98-107) mmol/L Carbon Dioxide 31 H (22-30) mmol/L BUN 5 L (7-17) mg/dL Creatinine 0.6 (0.6-1.2) mg/dL Glucose 288 H (65-100) mg/dL Calcium 9.0 (8.4-10.2) mg/dL AST 267 H (5-40) units/L ALT 533 H (7-56) units/L Alkaline Phosphatase 449 H (35-129) units/L Total Protein 6.1 L (6.3-8.2) g/dL Albumin 3.3 L (3.9-5) g/dL Calcium panel 06/25/20 Range/Units 09:47 Calcium 9.0 (8.4-10.2) mg/dL Albumin 3.3 L (3.9-5) g/dL Pituitary panel 06/25/20 Range/Units 09:47 Sodium 137 (137-145) mmol/L Potassium 3.3 L (3.6-5.0) mmol/L Chloride 95.0 L (98-107) mmol/L Carbon Dioxide 31 H (22-30) mmol/L BUN 5 L (7-17) mg/dL Creatinine 0.6 (0.6-1.2) mg/dL Glucose 288 H (65-100) mg/dL Calcium 9.0 (8.4-10.2) mg/dL Adrenal panel 06/25/20 Range/Units 09:47 Sodium 137 (137-145) mmol/L Potassium 3.3 L (3.6-5.0) mmol/L Chloride 95.0 L (98-107) mmol/L Carbon Dioxide 31 H (22-30) mmol/L BUN 5 L (7-17) mg/dL Creatinine 0.6 (0.6-1.2) mg/dL Glucose 288 H (65-100) mg/dL Calcium 9.0 (8.4-10.2) mg/dL Total Bilirubin 4.00 H (0.1-1.2) mg/dL AST 267 H (5-40) units/L ALT 533 H (7-56) units/L Alkaline Phosphatase 449 H (35-129) units/L Total Protein 6.1 L (6.3-8.2) g/dL Albumin 3.3 L (3.9-5) g/dL
[2020-06-25] MEDS: ENOXAPARIN 40 MG/0.4 ML INJ SUB-Q SCH (21:11)
[2020-06-26] MEDS: hydrALAZINE 25 MG TAB PO SCH ×2 (05:17→14:44)
[2020-06-26] MEDS: LEVOTHYROXINE 100 MCG TAB PO SCH (05:17)
[2020-06-26] MEDS: MORPHINE 2 MG/1 ML INJ IV PRN (05:17)
--- NOTE | 2020-06-26 06:48 | Progress Note ---
Assessment and Plan Assessment and plan: 54-year-old obese -[place] female patient with significant past medical history of type 2 diabetes mellitus hypothyroidism and hypertension ongoing tobacco use was admitted with nausea vomiting abdominal pain .work-up is possible acute cholecystitis. evaluated by surgeon Patient had lap cholecys tectomy and open repair of umbilical hernia, complicated by acute transaminitis, worsening LFTs, . 06/25: Continue supportive care GI input is noted. We will continue to monitor improvement of liver function. Status of counseling with the patient about her alcohol use she states that due to her job she smokes about half a pack a day and drinks 6 packs a week she understands need to cut down. Discharge when okay with GI. Acute liver injury - new onset after CCY; MRCP without biliary obstruction. suspect ischemic hepatitis given pattern and onset of elevation. cont to trend levels and hopefully will improve soon. --Patient status post cholecystectomy complicated by acute transaminitis Worsening LFTs --Transaminitis; worsening liver function tests s/p post cholecystectomy. GI, surgery following Surgery recommend MRCP, continue current management --Abdominal ultrasound;Significant gallbladder distention without cholelithiasis or cholecystitis. positive sonographic Prado's sign. HIDA scan; cystic duct obstruction --S/P lap cholecystectomy, umbilical hernia repair 06/21/2020 IV fluids, pain medications, continue postop care Surgery recommend regular diet --Abdominal pain ; present on admission, improved HIDA scan; cystic duct obstruction CT abdomen and pelvis; dilated gallbladder with gallbladder wall thickening s/p Lap cholecystectomy --Umbilical hernia;s/p open hernia repair Continue supportive care --Uncontrolled diabetes mellitus; Hemoglobin A1c 11.2, diabetic education, nutrition education Accu-Chek, sliding scale coverage, ADA diet And long-acting insulins Novolin 70/30 started 6 units twice a day increase as needed --Hypertension; moderate control Start hydralazine, PRN labetalol Pain control --Hypothyroidism; continue Synthroid --Obesity; BMI 38.8 Patient needs diet modification exercise as tolerated and weight reduction when medically stable --Ongoing tobacco use; Smoking cessation counseling, Advised nicotine patch as needed --DVT prophylaxis; Lovenox Closely monitor the patient and adjust management as needed Follow MRCP study, follow GI and surgery recommendations Disposition; discharge likely today. Patient is cleared by general surgery to be discharged today Hospitalist Physical - Physical exam Narrative exam: Not in cardiopulmonary distress. The patient appeared well nourished and normally developed. Vital signs as documented. Head exam is unremarkable. No scleral icterus . Neck is without jugular venous distension, thyromegaly, or carotid bruits. Lungs are clear to auscultation. Cardiac exam reveals regular rate and Rhythm. Abdominal exam reveals normal bowel sounds, nontender, no organomegaly. Extremities are nonedematous and both femoral and pedal pulses are normal. FUNERAL ARRANGER: Alert and oriented 3. No focal weakness. - Constitutional Vitals: Temp Pulse Resp BP Pulse Ox 99.7 F H 87 18 147/79 97 06/26/20 04:33 06/26/20 04:33 06/26/20 05:17 06/26/20 04:33 06/26/20 04:33 General appearance: Present: no acute distress, well-nourished, obese (Morbidly obese) Results - Labs CBC & Chem 7: 06/25/20 09:47 06/25/20 09:47 Labs: Laboratory Last Values WBC 5.8 K/mm3 (4.5-11.0) 06/25/20 09:47 RBC 4.10 M/mm3 (3.65-5.03) 06/25/20 09:47 Hgb 12.4 gm/dl (10.1-14.3) 06/25/20 09:47 Hct 36.4 % (30.3-42.9) 06/25/20 09:47 MCV 89 fl (79-97) 06/25/20 09:47 MCH 30 pg (28-32) 06/25/20 09:47 MCHC 34 % (30-34) 06/25/20 09:47 RDW 16.2 % (13.2-15.2) H 06/25/20 09:47 Plt Count 218 K/mm3 (140-440) 06/25/20 09:47 Lymph % (Auto) 22.2 % (13.4-35.0) 06/25/20 09:47 [place] % (Auto) 9.7 % (0.0-7.3) H 06/25/20 09:47 Eos % (Auto) 2.3 % (0.0-4.3) 06/25/20 09:47 Baso % (Auto) 1.0 % (0.0-1.8) 06/25/20 09:47 Lymph # (Auto) 1.3 K/mm3 (1.2-5.4) 06/25/20 09:47 [place] # (Auto) 0.6 K/mm3 (0.0-0.8) 06/25/20 09:47 Eos # (Auto) 0.1 K/mm3 (0.0-0.4) 06/25/20 09:47 Baso # (Auto) 0.1 K/mm3 (0.0-0.1) 06/25/20 09:47 Seg Neutrophils % 64.8 % (40.0-70.0) 06/25/20 09:47 Seg Neutrophils # 3.7 K/mm3 (1.8-7.7) 06/25/20 09:47 Sodium 137 mmol/L (137-145) 06/25/20 09:47 Potassium 3.3 mmol/L (3.6-5.0) L 06/25/20 09:47 Chloride 95.0 mmol/L (98-107) L 06/25/20 09:47 Carbon Dioxide 31 mmol/L (22-30) H 06/25/20 09:47 Anion Gap 14 mmol/L 06/25/20 09:47 BUN 5 mg/dL (7-17) L 06/25/20 09:47 Creatinine 0.6 mg/dL (0.6-1.2) 06/25/20 09:47 Estimated GFR > 60 ml/min 06/25/20 09:47 BUN/Creatinine Ratio 8 % 06/25/20 09:47 Glucose 288 mg/dL (65-100) H 06/25/20 09:47 POC Glucose 233 (70-105) H 06/25/20 21:37 Hemoglobin A1c 11.2 % (4-6) H 06/23/20 05:23 Calcium 9.0 mg/dL (8.4-10.2) 06/25/20 09:47 Phosphorus 3.10 mg/dL (2.5-4.5) 06/22/20 04:33 Magnesium 2.10 mg/dL (1.7-2.3) 06/22/20 04:33 Total Bilirubin 4.00 mg/dL (0.1-1.2) H 06/25/20 09:47 AST 267 units/L (5-40) H 06/25/20 09:47 ALT 533 units/L (7-56) H 06/25/20 09:47 Alkaline Phosphatase 449 units/L (35-129) H 06/25/20 09:47 Total Protein 6.1 g/dL (6.3-8.2) L 06/25/20 09:47 Albumin 3.3 g/dL (3.9-5) L 06/25/20 09:47 Albumin/Globulin Ratio 1.2 % 06/25/20 09:47 Lipase 45 units/L (13-60) 06/20/20 09:11 Urine Color Straw (Yellow) 06/20/20 08:39 Urine Turbidity Clear (Clear) 06/20/20 08:39 Urine pH 7.0 (5.0-7.0) 06/20/20 08:39 Ur Specific [place] 1.018 (1.003-1.030) 06/20/20 08:39 Urine Protein 100 mg/dl mg/dL (Negative) 06/20/20 08:39 Urine Glucose (UA) >=500 mg/dL (Negative) 06/20/20 08:39 Urine Ketones 20 mg/dL (Negative) 06/20/20 08:39 Urine Blood Neg (Negative) 06/20/20 08:39 Urine Nitrite Neg (Negative) 06/20/20 08:39 Urine Bilirubin Neg (Negative) 06/20/20 08:39 Urine Urobilinogen < 2.0 mg/dL (<2.0) 06/20/20 08:39 Ur Leukocyte Esterase Neg (Negative) 06/20/20 08:39 Urine WBC (Auto) 4.0 /HPF (0.0-6.0) 06/20/20 08:39 Urine RBC (Auto) 2.0 /HPF (0.0-6.0) 06/20/20 08:39 U Epithel Cells (Auto) 2.0 /HPF (0-13.0) 06/20/20 08:39 Urine Bacteria (Auto) 1+ /HPF (Negative) 06/20/20 08:39 Meredith/IV: Voiding Method Toilet IV Catheter Type [Left Forearm Peripheral IV ] IV Catheter Type [Right INT / Saline Lock Forearm] Active Medications - Current Medications Current Medications: Generic Name Dose Route Start Last Admin Trade Name Freq PRN Reason Stop Dose Admin Diphenhydramine HCl 25 mg 06/23/20 15:44 06/24/20 05:53 Benadryl IV 25 mg Q6H PRN Administration Itching Enoxaparin Sodium 40 mg 06/24/20 22:00 06/25/20 21:11 Enoxaparin SUB-Q 40 mg QDAY@2200 REVA Administration Protocol Hydralazine HCl 25 mg 06/24/20 14:00 06/26/20 05:17 Apresoline PO 25 mg Q8HR REVA Administration Insulin Human Isoph/Insulin Regular 6 unit 06/24/20 08:30 06/25/20 17:09 Humulin 70/30 SUB-Q 6 unit BIDDIAB REVA Administration Insulin Human Lispro 0 unit 06/20/20 16:30 06/25/20 21:24 Humalog SUB-Q 3 unit ACHS REVA Administration Protocol Labetalol HCl 10 mg 06/24/20 08:30 Labetalol IV Q4H PRN Hypertension Levothyroxine Sodium 200 mcg 06/21/20 06:00 06/26/20 05:17 Synthroid PO 200 mcg DAILY@0600 REVA Administration Lisinopril 5 mg 06/24/20 10:00 06/25/20 09:48 Zestril PO 5 mg QDAY REVA Administration Morphine Sulfate 2 mg 06/20/20 13:40 06/26/20 05:17 Morphine IV 2 mg Q4H PRN Administration Pain, Moderate (4-6) Pantoprazole Sodium 40 mg 06/23/20 07:30 06/25/20 09:48 Protonix PO 40 mg QDAC REVA Administration
[2020-06-26] MEDS: PANTOPRAZOLE 40 MG TAB PO SCH (08:24)
[2020-06-26] MEDS: INSULIN LISPRO 100 UNIT/ML VIAL 3 mL SUB-Q SCH ×2 (08:32→11:30)
[2020-06-26] MEDS: INSULIN NPH/REGULAR 70/30 INJ SUB-Q SCH (08:33)
[2020-06-26 08:36] LABS: Hematocrit 35.4 % (30.3-42.9); Hemoglobin 12.3 gm/dl (10.1-14.3); Mean Corpuscular HGB Conc 35 % (30-34); Mean Corpuscular Volume 90 fl (79-97); Platelet Count 225 K/mm3 (140-440); Red Blood Count 3.95 M/mm3 (3.65-5.03); Red Cell Distribution Width 16.3 % (13.2-15.2)
[2020-06-26 09:00] LABS: Alanine Aminotransferase 438 units/L (7-56); Albumin 3.1 g/dL (3.9-5); Blood Urea Nitrogen 4 mg/dL (7-17); Hemolysis Index 3
[2020-06-26 09:04] LABS: BUN/Creatinine Ratio 8
[2020-06-26] MEDS: LISINOPRIL 5 MG TAB PO SCH (09:19)
[2020-06-26 10:36] LABS: Basophils # (Auto) 0.1 K/mm3 (0.0-0.1); Basophils % (Auto) 1.3 % (0.0-1.8); Eosinophils # (Auto) 0.2 K/mm3 (0.0-0.4); Hemoglobin 12.3 gm/dl (10.1-14.3); Lymphocytes # (Auto) 1.5 K/mm3 (1.2-5.4); Lymphocytes % (Auto) 23.9 % (13.4-35.0); Mean Corpuscular HGB Conc 34 % (30-34); Mean Corpuscular Volume 90 fl (79-97); Monocytes # (Auto) 0.7 K/mm3 (0.0-0.8); Monocytes % (Auto) 11.1 % (0.0-7.3); Platelet Count 235 K/mm3 (140-440); Red Blood Count 4.01 M/mm3 (3.65-5.03); Red Cell Distribution Width 16.4 % (13.2-15.2)
--- NOTE | 2020-06-26 11:57 | Discharge Summary ---
Providers - Providers Date of Admission: 06/22/20 10:25 Date of discharge: 06/26/20 Attending physician: ALICIA GRANGER MD 06/20/20 12:05 Consult to Physician [CONS] Routine Comment: Dr. Dominguez spoke to Dr. Monroy @ 1204- [facility] Consulting Provider: BRIAN MONROY Physician Instructions: Reason For Exam: suspected choledocholithiasis, abd pain 06/22/20 10:23 Consult to Physician [CONS] Routine Comment: Consulting Provider: BURAK LUCIO Physician Instructions: Reason For Exam: Acute transaminitis/post lap kelly Primary care physician: COVER INSPECTOR Hospitalization Reason for admission: Cholecystitis, ischemic liver injury, uncontrolled diabetes mellitus Condition: Stable Pertinent studies: MRCP Procedures: cholecystectomy Hospital course: 54-year-old obese -Citizen Of [place] female patient with significant past medical history of type 2 diabetes mellitus hypothyroidism and hypertension ongoing tobacco use was admitted with nausea vomiting abdominal pain .work-up is possible acute cholecystitis. evaluated by surgeon Patient had lap cholecystectomy and open repair of umbilical hernia, complicated by acute transaminitis, worsening LFTs, . 06/25: Continue supportive care GI input is noted. We will continue to monitor improvement of liver function. Status of counseling with the patient about her alcohol use she states that due to her job she smokes about half a pack a day and drinks 6 packs a week she understands need to cut down. Discharge when okay with GI. Acute liver injury - new onset after CCY; MRCP without biliary obstruction. suspect ischemic hepatitis given pattern and onset of elevation. cont to trend levels and hopefully will improve soon. --Patient status post cholecystectomy complicated by acute transaminitis Worsening LFTs --Transaminitis; worsening liver function tests s/p post cholecystectomy. GI, surgery following Surgery recommend MRCP, continue current management --Abdominal ultrasound;Significant gallbladder distention without cholelithiasis or cholecystitis. positive sonographic Prado's sign. HIDA scan; cystic duct obstruction --S/P lap cholecystectomy, umbilical hernia repair 06/21/2020 IV fluids, pain medications, continue postop care Surgery recommend regular diet --Abdominal pain ; present on admission, improved HIDA scan; cystic duct obstruction CT abdomen and pelvis; dilated gallbladder with gallbladder wall thickening s/p Lap cholecystectomy --Umbilical hernia;s/p open hernia repair Continue supportive care --Uncontrolled diabetes mellitus; Hemoglobin A1c 11.2, diabetic education, nutrition education Accu-Chek, sliding scale coverage, ADA diet And long-acting insulins Novolin 70/30 started 6 units twice a day increase as needed --Hypertension; moderate control Start hydralazine, PRN labetalol Pain control --Hypothyroidism; continue Synthroid --Obesity; BMI 38.8 Patient needs diet modification exercise as tolerated and weight reduction when medically stable --Ongoing tobacco use; Smoking cessation counseling, Advised nicotine patch as needed --DVT prophylaxis; Lovenox Patient is cleared by general surgery for discharge. Patient's liver enzymes are trending down. Patient was on oxygen and home O2 evaluation was done and oxygen saturation was 96% on room air. Patient's hemoglobin A1c is 11.2 and I increased her insulin 70/30 to 10 units twice daily. I advised the patient to monitor her blood sugar frequently and discussed with her primary care physician medication adjustment. Patient was given pain medicine at the time of discharge. Management plan was discussed in detail with the patient. Patient verbalized she understood the plan of care. Disposition: DC-01 TO HOME OR SELFCARE Time spent for discharge: 35 minutes - Discharge Diagnoses (1) Diabetes mellitus type 2, uncontrolled Status: Acute (2) Abnormal ultrasound of abdomen Status: Acute (3) Hypertension Status: Acute Qualifiers: Hypertension type: essential hypertension Qualified Code(s): I10 - Essential (primary) hypertension (4) Intractable abdominal pain Status: Acute (5) Nausea & vomiting Status: Acute Qualifiers: Vomiting type: unspecified Vomiting Intractability: intractable Qualified Code(s): R11.2 - Nausea with vomiting, unspecified Core Measure Documentation - Palliative Care Palliative Care/ Comfort Measures: Not Applicable - Core Measures Any of the following diagnoses?: none Exam - Physical Exam Narrative exam: Not in cardiopulmonary distress. The patient is obese. Vital signs as documented. Head exam is unremarkable. No scleral icterus . Neck is without jugular venous distension, thyromegaly, or carotid bruits. Lungs are clear to auscultation. Cardiac exam reveals regular rate and Rhythm. Abdominal exam reveals normal bowel sounds. Extremities are nonedematous and both femoral and pedal pulses are normal. REFUND CLERK: Alert and oriented 3. No focal weakness. - Constitutional Vitals: Temp Pulse Resp BP Pulse Ox 99.7 F H 87 20 147/79 97 06/26/20 04:33 06/26/20 09:19 06/26/20 10:00 06/26/20 09:19 06/26/20 04:33 Plan Activity: no restrictions Weight Bearing Status: Full Weight Bearing Diet: diabetic Follow up with: ROSEANN GONZALES MD [Staff Physician] - 7 Days PRIMARY CARE, [Primary Care Provider] - 14 Days Prescriptions: Insulin NPH/Regular [NovoLIN 70/30] 10 unit SUB-Q BIDDIAB #1 vial oxyCODONE /ACETAMINOPHEN [Percocet 5/325] 1 tab PO Q6HR PRN #10 tablet PRN Reason: Pain Pantoprazole [Protonix TAB] 40 mg PO QDAC #30 tablet
--- NOTE | 2020-06-26 12:30 | Gastroenterology Progress Note ---
Assessment and Plan acute liver injury - post ccy, no obstructive process on MRCP; suspect ischemic hepatitis given rapid rise and subsequent improvement. trend labs, and if cont to improve, manage conservatively from gi stand point. will sign off, please call as needed. f/u in gi clinic in 2-3 weeks for labs. Subjective Date of service: 06/25/20 Principal diagnosis: abnormal liver enzymes Interval history: pt tolerating po; abd discomfort improving Objective - Constitutional Vitals: Temp Pulse Resp BP Pulse Ox 99.7 F H 87 20 147/79 97 06/26/20 04:33 06/26/20 09:19 06/26/20 10:00 06/26/20 09:19 06/26/20 04:33 General appearance: no acute distress - Respiratory Respiratory effort: normal Respiratory: bilateral: CTA - Cardiovascular Rhythm: regular Heart Sounds: Present: S1 & S2 - Gastrointestinal General gastrointestinal: Present: soft, non-distended - Labs CBC & Chem 7: 06/26/20 07:11 06/26/20 07:11 Labs: Laboratory Results - last 24 hr 06/25/20 06/25/20 06/26/20 16:04 21:37 07:11 WBC 6.5 RBC 4.01 Hgb 12.3 Hct 36.0 MCV 90 MCH 31 MCHC 34 RDW 16.4 H Plt Count 235 Lymph % (Auto) 23.9 [place] % (Auto) 11.1 H Eos % (Auto) 3.0 Baso % (Auto) 1.3 Lymph # (Auto) 1.5 [place] # (Auto) 0.7 Eos # (Auto) 0.2 Baso # (Auto) 0.1 Seg Neutrophils % 60.7 Seg Neutrophils # 3.9 Sodium Potassium Chloride Carbon Dioxide Anion Gap BUN Creatinine Estimated GFR BUN/Creatinine Ratio Glucose POC Glucose 221 H 233 H Calcium Total Bilirubin AST ALT Alkaline Phosphatase Total Protein Albumin Albumin/Globulin Ratio 06/26/20 06/26/20 06/26/20 07:11 07:11 08:20 WBC 6.4 RBC 3.95 Hgb 12.3 Hct 35.4 MCV 90 MCH 31 MCHC 35 H RDW 16.3 H Plt Count 225 Lymph % (Auto) [place] % (Auto) Eos % (Auto) Baso % (Auto) Lymph # (Auto) [place] # (Auto) Eos # (Auto) Baso # (Auto) Seg Neutrophils % Seg Neutrophils # Sodium 140 Potassium 3.3 L Chloride 99.1 Carbon Dioxide 33 H Anion Gap 11 BUN 4 L Creatinine 0.5 L Estimated GFR > 60 BUN/Creatinine Ratio 8 Glucose 225 H POC Glucose 186 H Calcium 9.0 Total Bilirubin 2.40 H AST 189 H ALT 438 H Alkaline Phosphatase 417 H Total Protein 7.0 Albumin 3.1 L Albumin/Globulin Ratio 0.8
[2020-06-26 13:22] VITALS: BP 152/97
== END 2020-06-26 14:55 | disposition home or self-care (01) | DRG 418 ==
LOC: ED 08:14 → 3A 12:56 → OBSVTOIN 06-22 10:25
PROVIDERS: ADMIT Internal Medicine; ATTEND Internal Medicine
PROC: 0FT44ZZ Resection of Gallbladder, Percutaneous Endoscopic Approach (ICD-10-PCS; principal; 2020-06-21)
PROC: 0WQF0ZZ Repair Abdominal Wall, Open Approach (ICD-10-PCS; 2020-06-21)
DX: K81.0 Acute cholecystitis (principal); S36.119A Unspecified injury of liver, initial encounter; E11.9 Type 2 diabetes mellitus without complications; E03.9 Hypothyroidism, unspecified; I10 Essential (primary) hypertension; K44.9 Diaphragmatic hernia without obstruction or gangrene; R74.01 Elevation of levels of liver transaminase levels; F17.200 Nicotine dependence, unspecified, uncomplicated; E66.01 Morbid (severe) obesity due to excess calories; K76.0 Fatty (change of) liver, not elsewhere classified; Y93.89 Activity, other specified; Y92.89 Other specified places as the place of occurrence of the external cause; Y99.8 Other external cause status; Z68.37 Body mass index [BMI] 37.0-37.9, adult; Z71.6 Tobacco abuse counseling; Z82.49 Family history of ischemic heart disease and other diseases of the circulatory system; Z79.899 Other long term (current) drug therapy
CPT/HCPCS: 36415; 74019; 74177; 74181; 76705; 78226; 80053; 81001; 82962; 83036; 83690; 83735; 84100; 85014; 85018; 85025; 85027; 88304; 96374; 96375; G0378; A4217; A9537; C9113; J1100; J1170; J1200; J1650; J1815; J1885; J2270; J2405; J2543; J2704; J2710; J3010; J7030; J7040; J7120; Q9967

== ENCOUNTER 2021-03-31 07:12 | Emergency (ER) | payer OTHER, SELFPAY ==
--- NOTE | 2021-03-31 11:12 | XRay Report ---
CHEST 2 VIEWS INDICATION: sob. COMPARISON: None. FINDINGS: Support devices: None. Heart: Within normal limits. Lungs/Pleura: No acute air space or interstitial disease. No significant pleural effusion. IMPRESSION: No acute findings. Signer Name: Julián Raines MD Signed: 03/31/2021 11:08 AM Workstation Name: [id number]
[2021-03-31] MEDS ORDERED: predniSONE 20 MG TAB PO ONE (11:59)
[2021-03-31] MEDS ORDERED: ALBUTEROL 2.5 MG/3 ML NEBU IH ONE (11:59)
--- NOTE | 2021-03-31 12:03 | Emergency Department Report ---
Minor Respiratory - HPI Chief Complaint: Upper Respiratory Infection Stated Complaint: CHEST CONGESTION, WEAK,COUGH Time Seen by Provider: 03/31/21 10:44 Duration: 3 Days Pain Location: Chest Severity: mild Minor Respiratory: Yes Able to Tolerate Fluids, Yes Cough, No Rhinorrhea, No Sore Throat, No Ear Pain, No Sick Contacts, No Hemoptysis, No Chest Pain, No Shortness of Breath, No Fever Other History: Patient is a pleasant 55-year-old -[place]ian female that comes to the emergency room with a 3-day history of cough cold and congestion. She is a smoker. She has not gotten her Covid immunization. Patient denies being around anybody that has been ill. She has no fever or chills. She states she is just been coughing more than normal and bringing up yellow phlegm. Patient denies chest pain or shortness of breath. Patient is ambulatory nontoxic and [id number] on arrival to [facility] ED Review of Systems ROS: Stated complaint: CHEST CONGESTION, WEAK,COUGH Other details as noted in HPI Comment: All other systems reviewed and negative ED Past Medical Hx - Past Medical History Previous Medical History?: Yes Hx Hypertension: Yes Hx CVA: No Hx Heart Attack/AMI: No Hx Diabetes: Yes Hx Deep Vein Thrombosis: No Hx Liver Disease: No Hx Renal Disease: No Hx COPD: Yes Additional medical history: THRYOID PROBLEMS - Surgical History Past Surgical History?: Yes Hx Cholecystectomy: Yes Additional Surgical History: DENTAL SURGERY/ - Social History Smoking Status: Current Every Day Smoker Substance Use Type: None - Medications Home Medications: Home Medications Medication Instructions Recorded Confirmed Last Taken Type Levothyroxine 200 mg PO DAILY 06/20/20 06/20/20 Unknown History Lisinopril [Zestril] 5 mg PO Q48HR 06/20/20 06/20/20 Unknown History Insulin NPH/Regular [NovoLIN 70/30] 10 unit SUB-Q BIDDIAB #1 vial 06/26/20 Unknown Rx Pantoprazole [Protonix TAB] 40 mg PO QDAC #30 tablet 06/26/20 Unknown Rx ALBUTEROL NEB's [Proventil 0.083% 2.5 mg IH TID PRN #1 box 03/31/21 Unknown Rx NEBS] Albuterol Sulfate [Proair 90 mcg IH QID PRN #1 aer.pow.ba 03/31/21 Unknown Rx Respiclick] Azithromycin [Zithromax Z-NIXON] 250 mg PO DAILY #6 tablet 03/31/21 Unknown Rx Cetirizine HCl [ZyrTEC] 10 mg PO DAILY #30 capsule 03/31/21 Unknown Rx Fluticasone [Flonase] 1 spray NS QDAY #1 bottle 03/31/21 Unknown Rx predniSONE [Deltasone] 20 mg PO DAILY #5 tablet 03/31/21 Unknown Rx Minor Respiratory Exam - Exam General: Vital signs noted. No distress. Alert and acting appropriately. HEENT: Yes Moist Mucous Membranes, No Pharyngeal Erythema, No Pharyngeal Exudates, No Rhinorrhea, No Conjuctival Injection, No Frontal Tenderness, No Maxillary Tenderness Ear: Neither TM Bulge, Neither TM Erythema, Neither EAC Pain, Neither EAC Discharge Neck: Yes Supple, No Adenopathy Lungs: Yes Good Air Exchange, Yes Wheezes, No Ronchi, No Stridor, No Cough, No Labored Respirations, No Retractions, No Use of Accessory Muscles, No Other Abnormal Lung Sounds Heart: Yes Regular, No Murmur Abdomen: Yes Normal Bowel Sounds, No Tenderness, No Peritoneal Signs Skin: No Rash, No Edema Neurologic: Alert and oriented, no deficits. Musculoskeletal: Unremarkable. ED Course Vital Signs 03/31/21 08:15 Temperature 98.4 F Pulse Rate 97 H Respiratory 18 Rate Blood Pressure 149/90 O2 Sat by Pulse 96 Oximetry ED Medical Decision Making - Radiology Data Radiology results: report reviewed, image reviewed NAP - Medical Decision Making XRAY NOTED Vital Signs 03/31/21 08:15 Temperature 98.4 F Pulse Rate 97 H Respiratory 18 Rate Blood Pressure 149/90 O2 Sat by Pulse 96 Oximetry TAKING PO, ambulatory nontoxic and [id number] on reexam. MEDICATED WITH NEB/PRED IN ER DC HOME WITH DC PLAN OF CARE INCLUDING MEDS AND FOLLOW UP. I have asked patient to follow-up with PCP on Sunday to make sure that she is getting better. Her x-ray has no evidence of Covid however she is at high risk given her comorbid conditions. I have encouraged her to get her Covid immunization and encouraged her to stop smoking SHE VERBALIZES UNDERSTANDING OF DC PLAN OF CARE - Differential Diagnosis RO PNA Critical care attestation.: If time is entered above; I have spent that time in minutes in the direct care of this critically ill patient, excluding procedure time. ED Disposition Clinical Impression: Bronchitis, Diabetes mellitus type 2, uncontrolled, Smoker Disposition: - TO HOME OR SELFCARE Is pt being admited?: No Does the pt Need Aspirin: No Condition: Stable Instructions: Upper Respiratory Infection, Adult, Diabetes Mellitus Type 2 in Adults (ED), Chronic Bronchitis (ED) Additional Instructions: MEDS ORDERED TODAY STOP SMOKING GET COVID IMMUNIZATION SEE PCP ON SUNDAY TO BE SURE YOU ARE GETTING BETTER REFERRAL BELOW Prescriptions: predniSONE [Deltasone] 20 mg PO DAILY #5 tablet Fluticasone [Flonase] 1 spray NS QDAY #1 bottle Albuterol Sulfate [Proair Respiclick] 90 mcg IH QID PRN #1 aer.pow.ba PRN Reason: Wheezing ALBUTEROL NEB's [Proventil 0.083% NEBS] 2.5 mg IH TID PRN #1 box PRN Reason: Wheezing Azithromycin [Zithromax Z-NIXON] 250 mg PO DAILY #6 tablet Cetirizine HCl [ZyrTEC] 10 mg PO DAILY #30 capsule Referrals: BRYSON QUINTANILLA MD [Staff Physician] - 3-5 Days Time of Disposition: 12:02
[2021-03-31 13:14] VITALS: BP 132/88
== END 2021-03-31 13:14 | disposition home or self-care (01) ==
LOC: ED 07:12
DX: J40 Bronchitis, not specified as acute or chronic (principal); F17.200 Nicotine dependence, unspecified, uncomplicated; E11.8 Type 2 diabetes mellitus with unspecified complications; J44.9 Chronic obstructive pulmonary disease, unspecified; I10 Essential (primary) hypertension; Z98.890 Other specified postprocedural states
CPT/HCPCS: 71046; 94640; 94644; 99283; J7512